=== PATIENT | female | born 1955 | race Caucasian/White ===

== ENCOUNTER 2016-11-08 00:36 | Emergency (ER) | payer MEDICARE, OTHER ==
[~2016-11-08] VITALS: Ht 154.9 cm; Wt 55.0 kg
[2016-11-08 00:41] VITALS: Ht 154.9 cm; Wt 55.0 kg
[2016-11-08] MEDS ORDERED: SOD CHLORIDE 0.9% 1,000 ML IV STA (01:46)
[2016-11-08] MEDS ORDERED: morphine 2 MG INJ IV ONE (02:00)
[2016-11-08 02:27] LABS: ABNORMAL IP MESSAGE 1; EOSINOPHILS # 0.3 10^3/ul (0.0-0.5); EOSINOPHILS % 8.6 % (0.0-7.0); HEMATOCRIT 32.8 % (37.0-47.0); HEMOGLOBIN 10.3 g/dl (12.0-16.0); LYMPHOCYTES # 0.7 10^3/ul (0.8-2.9); MEAN CORPUSCULAR HEMOGLOBIN 33.6 pg (29.0-33.0); MEAN CORPUSCULAR HGB CONC 31.4 g/dl (32.0-37.0); MEAN CORPUSCULAR VOLUME 106.8 fl (82.0-101.0); MEAN PLATELET VOLUME 11.3 fl (7.4-10.4); MONOCYTE # 0.2 10^3/ul (0.3-0.9); MONOCYTES % 6.5 % (0.0-11.0); NEUTROPHIL # 1.7 10^3/ul (1.6-7.5); NEUTROPHILS % 58.9 % (39.0-77.0); PLATELET COUNT 61 10^3/UL (140-415); RED BLOOD COUNT 3.07 10^6/ul (4.20-5.40); RED CELL DISTRIBUTION WIDTH 15.3 % (11.5-14.5); WHITE BLOOD COUNT 2.9 10^3/ul (4.8-10.8)
--- NOTE | 2016-11-08 02:36 | RADRPT ---
PROCEDURE: XR Elbow. CLINICAL INDICATION: Trauma. Pain. TECHNIQUE: Three views of the left elbow are available for review COMPARISON: None available FINDINGS: There is no fracture. Joint relationships are maintained. Bone mineralization is within normal childers its. There is no posterior fat pad sign. Soft tissues unremarkable. IMPRESSION: 1. No fracture or dislocation. RPTAT: [facility]K .Eladio Villanueva MD, Date Time Electronically viewed and signed by .Eladio Villanueva MD, on 11/08/2016 02:35 .K/
--- NOTE | 2016-11-08 02:37 | RADRPT ---
PROCEDURE: XR Left Knee. CLINICAL INDICATION: Left knee pain. Trauma. TECHNIQUE: Three views of the left knee are available for review. COMPARISON: None available FINDINGS: There is mild diffuse soft tissue swelling. There is no fracture. Joint relationships are maintain ed. Patella is unremarkable. Bone mineralization is within normal limits. IMPRESSION: 1. Diffuse soft tissue swelling. 2. No acute fracture or dislocation is seen. RPTAT: HMVK .Eladio Villanueva MD, MD Date Time Electronically viewed and signed by .Eladio Villanueva MD, MD on 11/08/2016 02:36 .K/
--- NOTE | 2016-11-08 02:38 | RADRPT ---
PROCEDURE: XR Knee. CLINICAL INDICATION: Pain. Trauma. TECHNIQUE: Three views of the right knee are available for review. COMPARISON: None available FINDINGS: There is mild diffuse soft tissue swelling. There is no fracture. Joint relationships are maintain ed. Bone mineralization is within normal limits. Vascular calcifications are present. IMPRESSION: 1. Diffuse soft tissue swelling. 2. No acute fracture or dislocation is seen. 3. Vascular calcifications. RPTAT: [facility]VK .Eladio Villanueva MD, MD Date Time Electronically viewed and signed by .Eladio Villanueva MD, on 11/08/2016 02:38 .K/
[2016-11-08 02:43] LABS: CALCIUM 9.5 mg/dl (8.4-10.2); CREATININE 3.94 mg/dl (0.44-1.00); POTASSIUM 4.4 mmol/L (3.5-5.1)
[2016-11-08 02:50] LABS: ADD SCAN DIFF YES
--- NOTE | 2016-11-08 03:04 | RADRPT ---
PROCEDURE: CT brain without contrast. CLINICAL INDICATION: Injury and pain. TECHNIQUE: CT scan of the brain was performed on a multi-detector high-resolution CT scanner. Co ntiguous axial images were obtained from the skull base to the vertex without intravenous contrast. Coronal and sagittal reformatted images were also obtained. Images were reviewed on the PACS works tation. One or more of the following dose reduction techniques were used: - Automated exposure control. - Adjustment of the mA and/or kV according to patient size. - Use of iterative reconstruction technique. Exam CTD/vol = 44.68 mGy. Total exam DLP = 720.23 mGy-cm. COMPARISON: None. FINDINGS: The ventricles and cortical sulci are prominent consistent with mild age related volume loss. There are patchy areas of low attenuation within the periventricular white matter consistent with minimal chronic ischemic changes secondary to small vessel disease. There is no mass effect or midline bebe ft. There is no intracranial hemorrhage or abnormal extra-axial collection. There are atherosclerot ic calcifications within bilateral distal internal carotid arteries. The calvarium is intact. There is no evidence of fracture. Visualized paranasal sinuses and mastoi d air cells are clear. IMPRESSION: No acute intracranial abnormality identified. Mild age related volume loss and minimal chronic ischemic white matter disease. Cerebral atherosclerosis. .Victor Manuel Garcia MD, Date Time Electronically viewed and signed by .Victor Manuel Garcia MD, MD on 11/08/2016 03:04 .T/
--- NOTE | 2016-11-08 03:08 | RADRPT ---
PROCEDURE: CT facial bones without contrast. CLINICAL INDICATION: Injury and pain. TECHNIQUE: CT scan of the facial bones was performed [facility] Contiguous axial images were obtained without intravenous contrast. Coronal and sagittal refor matted images were also obtained. Images were reviewed on the PACS workstation. One or more of the following dose reduction techniques were used: - Automated exposure control. - Adjustment of the mA and/or kV according to patient size. - Use of iterative reconstruction technique. Exam CTD/vol = 29.52 mGy. Total exam DLP = 600.40 mGy-cm. COMPARISON: None. FINDINGS: There are fractures of the nasal bone. Bilateral orbital rims, zygoma and zygomatic arches are inta ct. The pterygoid plates are intact. The mandible and maxilla are within normal limits. Bilateral temporomandibular joints are within normal limits. There is mild mucoperiosteal disease within the left maxillary sinus and right frontal sinus. There are no air-fluid levels. Bilateral orbital globes are symmetric and within normal limits. The extraocular muscles are symmet mignon and of normal caliber. Preseptal spaces are within normal limits. Retrobulbar fat are clear. Bilateral optic nerves and superior ophthalmic veins are within normal limits. IMPRESSION: Nasal bone fractures. Mild paranasal sinus inflammatory disease. .Victor Manuel Garcia MD, MD Date Time Electronically viewed and signed by .Victor Manuel Garcia MD, MD on 11/08/2016 03:08 .T/
[2016-11-08] MEDS ORDERED: OXYMETAZOLINE 0.05% 15 ML NAS SPRAY NASAL ONE (04:00)
[2016-11-08] MEDS ORDERED: KETOROLAC 15 MG INJ IV STA (04:29)
[2016-11-08 05:00] LABS: ANISOCYTOSIS 1+; PLATELET ESTIMATE PLT APPEAR DECREASED
[2016-11-08] MEDS ORDERED: predniSONE 50 MG TAB PO ONE (05:30)
[2016-11-08] MEDS ORDERED: NAPR-685 PO (05:31)
[2016-11-08] MEDS ORDERED: HYDR-906 PO (05:31)
[2016-11-08] MEDS ORDERED: ONDA4TAB11 PO (05:31)
--- NOTE | 2016-11-08 05:37 | ERD ---
ER Documentation Chief Complaint Date/Time DATE: 11/08/16 TIME: 05:36 Chief Complaint PT FELL ASLEEP AND FELL FORWARD, LEFT ELBOW INJURY, NOSE INJURY HPI This 61-year-old female presents for falling asleep while sitting and falling forward. She fell forward and hit her nasal bridge on the ground as well as her knees and her left elbow. Denies any loss of consciousness. States that she felt well earlier today and has had no other issues except for an itchy rash on her lower thighs that she has been taking Benadryl for. She receives dialysis and last received on Tuesday with no complications. She has no chest pain, dizziness, shortness of breath. She has not had fevers and chills lately. ROS All systems reviewed and are negative except as per history of present illness. Medications Home Meds Active Scripts Naproxen* (Naproxen*) 375 Mg Tablet, 375 MG PO BID Y for PAIN, #20 TAB Prov:ANTONIO LOFTON DO 11/08/16 Hydrocodone/Acetaminophen (Tinnie 5-325 Tablet) 1 Each Tablet, 1 EACH PO Q6 for SEVERE PAIN LEVEL 7-10, #16 TAB Prov:ANTONIO LOFTON DO 11/08/16 Ondansetron (Zofran Odt) 4 Mg Tab.rapdis, 4 MG PO Q6 for NAUSEA, #10 Prov:ANTONIO LOFTON DO 11/08/16 Allergies Allergies: Coded Allergies: lidocaine (Unverified Allergy, Unknown, 11/08/16) PMhx/Soc History of Surgery: Yes (CHOLECYSTECTOMY, CATARACTS, ANGIOGRAM X'S 2) Anesthesia Reaction: No Hx Neurological Disorder: No Hx Respiratory Disorders: No Hx Cardiac Disorders: Yes (HTN) Hx Psychiatric Problems: No Hx Miscellaneous Medical Probl: Yes (ESRD, DIALYSIS) Hx Alcohol Use: No Hx Substance Use: No Hx Tobacco Use: No Smoking Status: Never smoker Physical Exam Vitals Vital Signs Date Time Temp Pulse Resp B/P Pulse Ox O2 Delivery O2 Flow Rate FiO2 11/08/16 04:55 97.3 70 17 153/67 95 Room Air 11/08/16 01:40 97.3 75 17 151/67 98 Room Air 11/08/16 00:41 97.3 80 17 173/75 95 Physical Exam Const: [] Mild distress, appears uncomfortable Head: Atraumatic Eyes: Normal Conjunctiva, EOMI, PRL ENT: Nasal bridge with swelling and no lacerations. Tenderness palpation about nose but no other bones of the face are tender. No septal hematoma peer Neck: Full range of motion..~ No meningismus. No midline tenderness. Resp: Clear to auscultation bilaterally Cardio: Regular rate and rhythm, no murmurs Abd: Soft, non tender, non distended. Normal bowel sounds Skin: No petechiae or rashes Back: No midline or flank tenderness Ext: Left elbow edema approximately 3 cm from left upper arm fistula which has a palpable thrill and no apparent damage. Also bilateral knee swelling with some tenderness to palpation however patient is able to move her knees and bend them without assistance. Distal pulses intact all 4 extremities Neur: Awake and alert and oriented 3, no focal deficits, cranial 2 through 12 intact, no cerebellar deficit Psych: Normal Mood and Affect Result Diagram: 11/08/1620911/08/16 021 Results 24 hrs Laboratory Tests Test 11/08/16 02:10 White Blood Count 2.910^3/ul Red Blood Count 3.0710^6/ul Hemoglobin 10.3g/dl Hematocrit 32.8% Mean Corpuscular Volume 106.8fl Mean Corpuscular Hemoglobin 33.6pg Mean Corpuscular Hemoglobin Concent 31.4g/dl Red Cell Distribution Width 15.3% Platelet Count 6110^3/UL Mean Platelet Volume 11.3fl Neutrophils % 58.9% Lymphocytes % 25.0% Monocytes % 6.5% Eosinophils % 8.6% Basophils % 1.0% Nucleated Red Blood Cells % 0.0/100WBC Neutrophils # 1.710^3/ul Lymphocytes # 0.710^3/ul Monocytes # 0.210^3/ul Eosinophils # 0.310^3/ul Basophils # 0.010^3/ul Nucleated Red Blood Cells # 0.010^3/ul Platelet Estimate PLT APPEAR DECREASED Anisocytosis 1+ Macrocytosis 1+ Sodium Level 143mmol/L Potassium Level 4.4mmol/L Chloride Level 94mmol/L Carbon Dioxide Level 31mmol/L Anion Gap 22 Blood Urea Nitrogen 30mg/dl Creatinine 3.94mg/dl Glucose Level 131mg/dl Calcium Level 9.5mg/dl Current Medications Medications (Trade) Dose Ordered Sig/Alana Route PRN Reason Start Time Stop Time Status Last Admin Dose Admin Sodium Chloride (NS) 1,000 ml @ 1,000 mls/hr Q1H STAT IV 11/08/16 01:46 11/08/16 02:45 DC 11/08/16 02:32 Morphine Sulfate (morphine) 2 mg ONCE ONCE IV 11/08/16 02:00 11/08/16 02:01 DC 11/08/16 02:33 Oxymetazoline HCl (Afrin [place]) 2 spray ONCE ONCE NASAL 11/08/16 04:00 11/08/16 04:37 DC 11/08/16 04:53 Ketorolac Tromethamine (Toradol) 15 mg ONCE STAT IV 11/08/16 04:29 11/08/16 04:30 DC 11/08/16 04:36 Prednisone (Prednisone) 50 mg ONCE ONCE PO 11/08/16 05:30 11/08/16 05:31 DC 11/08/16 05:33 Procedures/MDM Accidental fall and fell asleep in a seated position without any obvious other etiology that is concerning. Nasal fractures. Bilateral knee contusion as well as left elbow contusion. Patient was given morphine as well as small dose of Toradol and with relief of pain. She has family at bedside is going to be discharged in their care. She was also given Afrin nasal spray which did help open up her nasal passages. Giving her primary care follow-up in the next 2 days as well as ENT follow-up. She has no apparent metabolic abnormalities and it appears that dialysis went well. No signs of infection of the patient does have leukocytosis and a macrocytic anemia. EKG interpretation: Normal sinus rhythm rate of 71, normal axis, T-wave inversions in lateral leads, no ST elevations or depressions concerning for ischemia, normal intervals. quality assurance monitor body interpretation: Normal sinus rhythm without arrhythmia Maxillofacial CT: Bilateral nasal bone fractures without other fracture or dislocation. No orbital fracture. No foreign bodies CT head interpretation: No acute process. I see no hemorrhage, no mass-effect, no midline shift, no skull fracture. Bilateral knee x-ray interpretation by myself: I see no fracture dislocation. There is soft tissue swelling bilaterally. Left elbow x-ray interpretation: Soft tissue swelling without fracture dislocation. Departure Diagnosis: Primary Impression: Head injury Additional Impressions: Nasal bone fracture Accidental fall Contusion of knee, left Contusion of knee, right Left elbow contusion Condition: Stable Patient Instructions: Facial Fracture, HEAD INJURY, No Wake-Up (Adult) Additional Instructions: Call your primary care doctor TOMORROW for an appointment during the next 1-2 days. Get a referral for an ENT doctor. See the doctor sooner or return here if your condition worsens before your appointment time. ANTONIO LOFTON DO Nov 08, 2016 05:36
[2016-11-08 05:44] VITALS: BP 138/67; PULSE 70; RESP 17; TEMP 97.3
== END 2016-11-08 05:46 | disposition home or self-care (01) ==
LOC: E/R 00:36
DX: S09.90XA Unspecified injury of head, initial encounter (principal); S02.2XXA Fracture of nasal bones, initial encounter for closed fracture; S80.02XA Contusion of left knee, initial encounter; S80.01XA Contusion of right knee, initial encounter; S50.02XA Contusion of left elbow, initial encounter; I12.0 Hypertensive chronic kidney disease with stage 5 chronic kidney disease or end stage renal disease; N18.6 End stage renal disease; W18.39XA Other fall on same level, initial encounter; Y92.9 Unspecified place or not applicable; Z99.2 Dependence on renal dialysis
CPT/HCPCS: 70450; 70486; 73080; 73562; 80048; 85025; 93005; J1885; J2270; J7030; J7512; 36415; 96374; 96375

== ENCOUNTER 2017-08-13 09:05 | Inpatient (IN) | END 2017-09-19 22:15 | DRG 871 ==

== ENCOUNTER 2017-09-26 19:55 | Emergency (ER) | END 2017-09-27 05:58 | disposition home or self-care (01) ==

== ENCOUNTER 2018-03-24 12:04 | Inpatient (IN) | END 2018-03-27 18:35 | disposition home or self-care (01) | DRG 150 ==

== ENCOUNTER 2018-08-29 19:57 | Observation (INO) | payer MEDICARE, OTHER ==
[~2018-08-29] VITALS: Ht 154.9 cm; Wt 44.0 kg
[~2018-08-29 19:57] MED LIST: ACET325T33 PO; AMIN30LI PO; AMLO5TAB4 PO; ASC500 PO; BISA10SU75 PR; CHOL100062 PO; CITA20TA8 PO; CRAN3875 PO; CRAN425C6 PO; DICL100G37 TOP; DOCU-144 PO; EPOE3000 SC; HEPA100D39 IV; HYDR-3980 PO; HYDR-4011 PO; LEVO500T10 PO; LOPE-123 PO; LYR75 PO; MORP15TA92 PO; MULT-105 PO; OMEP20CA16 PO; PRED5TAB PO; SIME80TA60 PO; TYL500 PO
[2018-08-30] MEDS ORDERED: CEFTRIAXONE 1 GM/50 ML (PMX) 50 ML IVPB ONE (01:30)
[2018-08-30] MEDS ORDERED: VANCOMYCIN 1 GM (PMX) 250 ML IVPB STA (01:56)
[2018-08-30] MEDS ORDERED: CEFEPIME 1GM/50 ML (PMX) 50 ML IVPB STA (01:56)
--- NOTE | 2018-08-30 03:13 | ERD ---
ER Documentation Chief Complaint Chief Complaint sore throat, cough, fever, chills x1wk. hx esrd on hd HPI This is a very pleasant 63-year-old female comes in with a cough fever and chills for the past week. Patient has history of end-stage renal disease on dialysis. Cough is mildly productive with yellowish sputum. No nausea no vomiting. No sick contacts. No recent travel. She is Tuesday dialysis patient. She denies any other current complaints. ROS All systems reviewed and are negative except as per history of present illness. Medications Home Meds Active Scripts Levofloxacin* (Levofloxacin*) 500 Mg Tablet, 500 MG PO DAILY, #7 TAB Prov:MAGALYS PAUL 03/27/18 Docusate Sodium* (Colace*) 100 Mg Capsule, 100 MG PO TID, #30 CAP Prov:ANY REVELES MD 03/24/18 Hydrocodone/Acetaminophen (Pillow 5-325 Tablet) 1 Each Tablet, 1 TAB PO Q6H PRN for PAIN, #20 TAB Prov:ANY REVELES MD 03/24/18 Reported Medications Epoetin june* (Epogen*) 3,000 Unit/1 Ml Vial, 6000 UNITS SC Q TUE,CORINNE,SAT, VIAL INJECT AT 5PM 09/26/17 Heparin Sodium,Porcine/Pf (Heparin 1,000 Unit/10 (100/ml)) 1,000 Unit/10 Ml Syringe, 4000 UNIT IV AFTER DIALYSIS 09/26/17 Simethicone* (Mylicon*) 80 Mg Tab, 80 MG PO DAILY PRN for GAS RELIEVF, TAB 09/26/17 Pregabalin* (Lyrica*) 75 Mg Capsule, 75 MG PO BID, CAP 09/26/17 Prednisone* (Prednisone*) 5 Mg Tab, 5 MG PO DAILY, TAB 09/26/17 Omeprazole* (Omeprazole*) 20 Mg Capsule.dr, 20 MG PO QAM, #30 CAP 09/26/17 Loperamide Hcl* (Loperamide Hcl*) 2 Mg Cap, 2 MG PO BID, CAP 09/26/17 Cholecalciferol* (Vitamin D3*) 1,000 Unit Tablet, 1000 UNIT PO DAILY, TAB 09/26/17 Amlodipine Besylate* (Norvasc*) 5 Mg Tablet, 5 MG PO DAILY, TAB HOLD IF SBP<110 & HR<60 09/26/17 Diclofenac Sodium* (Voltaren* Gel) 1% -100 Gm Gel, 2 GM TOP QID, #1 TUB 09/26/17 Citalopram Hydrobromide* (Citalopram Hydrobromide*) 20 Mg Tablet, 20 MG PO DAILY, #30 TAB 09/26/17 Cran/Vitc/Mannose/Inulin/Brom (Uti-Stat Liquid) 3,875 Mg/30 Ml Liquid, 30 ML PO DAILY 09/26/17 Cranberry Extract (Cranberry) 425 Mg Capsule, 425 MG PO DAILY, CAP 09/26/17 Bisacodyl* (Bisacodyl*) 10 Mg Supp, 10 MG W[place] DAILY, SUPP 09/26/17 Docusate Sodium* (Colace*) 100 Mg Capsule, 200 MG PO QHS, #30 CAP 09/26/17 Amino Acids/Protein Hydrolys (PRO-STAT LIQUID) 30 Ml Liquid.pkt, 30 ML PO DAILY SUGAR FREE 09/26/17 Ascorbic Acid (Vitamin C) 500 Mg Tab, 500 MG PO BID, TAB 09/26/17 Multivitamin with Minerals (Multivitamins with Minerals) 1 Each Tablet, 1 EACH PO DAILY, TAB 09/26/17 Morphine Sulfate* (Ms Contin*) 15 Mg Tablet.sa, 15 MG PO Q12, TAB 09/26/17 Acetaminophen* (Tylenol*) 325 Mg Tablet, 650 MG PO Q4H PRN for FOR FEVER 100 & ABOVE, TAB 09/26/17 Hydrocodone/Acetaminophen (Pillow 10-325 Tablet) 1 Each Tablet, 1 EACH PO Q4H for PAIN 7-9/10, TAB 09/26/17 Acetaminophen* (Tylenol*) 500 Mg Tab, 1000 MG PO Q6H PRN for PAIN 7-9/10, TAB 09/26/17 Acetaminophen* (Tylenol*) 325 Mg Tablet, 650 MG PO Q6H PRN for MILD PAIN LEVEL 1-3, TAB 09/26/17 Allergies Allergies: Coded Allergies: lidocaine (Unverified Allergy, Unknown, 09/26/17) PMhx/Soc History of Surgery: Yes (CHOLECYSTECTOMY, ENDOMITRIOSIS, ANGIOGRAM ) Anesthesia Reaction: No Hx Neurological Disorder: No Hx Respiratory Disorders: Yes (PNA, BRONCHITIS) Hx Cardiac Disorders: Yes (HTN) Hx Psychiatric Problems: No Hx Miscellaneous Medical Probl: Yes (ESRD on HD, thrombocytopenia, anemia, and lupus ) Hx Alcohol Use: No Hx Substance Use: No Hx Tobacco Use: Yes Smoking Status: Former smoker Physical Exam Vitals Vital Signs Date Temp Pulse Resp B/P (MAP) Pulse Ox O2 O2 Flow FiO2 Time Delivery Rate 08/30/18 98.6 68 10 149/61 100 Room Air 00:55 (90) 08/29/18 75 16 142/65 97 Room Air 23:22 (90) 08/29/18 97.9 77 18 190/76 96 20:00 (114) Physical Exam Const: No acute distress Head: Atraumatic Eyes: Normal Conjunctiva ENT: Normal External Ears, Nose and Mouth. Neck: Full range of motion. No meningismus. Resp: Clear to auscultation bilaterally Cardio: Regular rate and rhythm, no murmurs Abd: Soft, non tender, non distended. Normal bowel sounds Skin: No petechiae or rashes Back: No midline or flank tenderness Ext: No cyanosis, or edema Neur: Awake and alert Psych: Normal Mood and Affect Result Diagram: 08/29/18232908/29/182329 Results 24 hrs Laboratory Tests Test 08/29/18 23:30 08/29/18 23:33 08/30/18 00:55 08/30/18 03:04 White Blood Count 6.1 10^3/ul Red Blood Count 2.99 10^6/ul Hemoglobin 10.1 g/dl Hematocrit 30.6 % Mean Corpuscular 102.3 fl Volume Mean Corpuscular 33.8 pg Hemoglobin Mean Corpuscular 33.0 g/dl Hemoglobin Concen t Red Cell 15.1 % Distribution Width Platelet Count 163 10^3/UL Mean Platelet 9.4 fl Volume Immature 0.500 % Granulocytes % Neutrophils % 75.5 % Lymphocytes % 14.8 % Monocytes % 5.4 % Eosinophils % 3.6 % Basophils % 0.2 % Nucleated Red 0.0 /100WBC Blood Cells % Immature 0.030 10^3/ul Granulocytes # Neutrophils # 4.6 10^3/ul Lymphocytes # 0.9 10^3/ul Monocytes # 0.3 10^3/ul Eosinophils # 0.2 10^3/ul Basophils # 0.0 10^3/ul Nucleated Red 0.0 10^3/ul Blood Cells # Prothrombin Time 14.4 Sec Prothrombin Time 1.1 Ratio INR International 1.11 Normalized Ratio Activated 41.2 Sec Partial Thrombopl ast Time Sodium Level 135 mmol/L Potassium Level 4.5 mmol/L Chloride Level 91 mmol/L Carbon Dioxide 31 mmol/L Level Anion Gap 13 Blood Urea 24 mg/dl Nitrogen Creatinine 3.99 mg/dl Est Glomerular 11 mL/min Filtrat Rate mL/min Glucose Level 88 mg/dl Calcium Level 8.0 mg/dl Total Bilirubin 0.0 mg/dl Direct Bilirubin 0.00 mg/dl Indirect 0.0 mg/dl Bilirubin Aspartate Amino 22 IU/L Transf (AST/SGOT) Alanine 11 IU/L Aminotransferase (ALT/SGPT) Alkaline 179 IU/L Phosphatase Troponin I 0.020 ng/ml Total Protein 8.0 g/dl Albumin 4.5 g/dl Globulin 3.50 g/dl Albumin/Globulin 1.28 Ratio POC Venous 0.8 mmol/L 0.8 mmol/L Lactate Urine Color YELLOW Urine Clarity CLOUDY Urine pH 8.0 Urine Specific 1.013 [place] Urine Ketones NEGATIVE mg/dL Urine Nitrite NEGATIVE mg/dL Urine Bilirubin NEGATIVE mg/dL Urine NEGATIVE mg/dL Urobilinogen Urine Leukocyte 2+ Alfredo/ul Esterase Urine Microscopic 6 /HPF RBC Urine Microscopic 168 /HPF WBC Urine Squamous MODERATE /HPF Epithelial Cells Urine Bacteria FEW /HPF Urine Hemoglobin 1+ mg/dL Urine Glucose 1+ mg/dL Urine Total 3+ mg/dl Protein Current Medications Medications Dose Sig/Alana Start Time Status Last (Trade) Ordered Route PRN Stop Time Admin Dose Reason Admin Ceftriaxone 50 ml @ ONCE ONCE 08/30/18 DC 08/30/18 Sodium 100 mls/hr IVPB 01:30 01:38 08/30/18 01:59 Cefepime HCl 50 ml @ ONCE STAT 08/30/18 DC 08/30/18 100 mls/hr IVPB 01:56 03:00 08/30/18 02:25 Vancomycin 250 ml @ ONCE STAT 08/30/18 HCl 125 mls/hr IVPB 01:56 08/30/18 03:55 Procedures/MDM EKG: Rate/Rhythm: [Normal Sinus Rhythm] QRS, ST, T-waves: [No changes consistent w/ acute ischemia] Impression: [No evidence of ischemia or arrhythmia] Chest X-ray 1V Interpreted by me: Soft Tissue: No acute abnormalities Bones: No acute abnormalities Mediastinum/Cardiac Silhouette/Lungs: Bilateral lower lobe infiltrates Medical decision making: This is a 63-year-old female as well as to be bilateral lower lobe pneumonia along with a urinary tract infection given her multiple source of infection and the fact that she is a dialysis patient, patient was started on H CAP pneumonia protocol. No evidence of sepsis with a normal lactic acid normal vital signs. Patient will be admitted to hospitalist for further evaluation and management. Departure Diagnosis: Primary Impression: Bilateral pneumonia Pneumonia type: due to unspecified organism Lung location: lower lobe of lung Qualified Codes: J18.1 - Lobar pneumonia, unspecified organism Condition: Serious EKTA PIERCE Aug 30, 2018 03:13
[2018-08-30] MEDS ORDERED: LYR75 PO (04:06)
[2018-08-30 04:11] VITALS: BP 165/68; PULSE 66; RESP 16
[2018-08-30 04:34] VITALS: Ht 154.9 cm; Wt 44.0 kg
[2018-08-30] MEDS ORDERED: ONDANSETRON 4 MG INJ IV PRN (05:30)
[2018-08-30] MEDS ORDERED: NACL 0.9% 3 ML SYG IV SCH (05:30)
[2018-08-30] MEDS ORDERED: ALBUTEROL/IPRATROPIUM (NEB) 3 ML AMP HHN PRN (05:30)
[2018-08-30] MEDS ORDERED: HYDROCODONE/APAP (5/325) TAB PO PRN (05:30)
[2018-08-30] MEDS ORDERED: ACETAMINOPHEN 325 MG TAB PO PRN (05:30)
[2018-08-30] MEDS: LISINOPRIL 10 MG TAB PO SCH (05:51)
[2018-08-30 08:00] VITALS: BP 140/72; PULSE 67; RESP 20
--- NOTE | 2018-08-30 08:03 | HP ---
Date/Time of Note Date/Time of Note DATE: 08/30/18 TIME: 07:57 Assessment/Plan VTE Prophylaxis Risk score (from Ns)>0 risk: 3 SCD applied (from Ns): Yes Pharmacological prophylaxis: heparin Lines/Catheters IV Catheter Type (from Nrs): Saline Lock Assessment/Plan Assessment/Plan 1. Sore throat and productive cough -Chest x-ray was possible bilateral pneumonia -Respiratory culture, throat swab -IV antibiotic 2. UTI: IV antibiotic, follow-up urine culture results 3. ESRD on HD (Tue, Thr, Sat), patient with a history of lupus: -Nephrology for dialysis 4. Hypertensive urgency: BP better controlled. Continue home meds, adjust as needed 5. Normocytic anemia: Likely anemia of chronic disease/renal failure Result Diagram: 08/29/18232908/29/180 Results 24hrs Laboratory Tests Test 08/29/18 23:30 08/29/18 23:33 08/30/18 00:55 08/30/18 03:04 White Blood Count 6.1 Red Blood Count 2.99 L Hemoglobin 10.1 #L Hematocrit 30.6 L Mean Corpuscular 102.3 H Volume Mean Corpuscular 33.8 H Hemoglobin Mean Corpuscular 33.0 Hemoglobin Concent Red Cell 15.1 H Distribution Width Platelet Count 163 # Mean Platelet Volume 9.4 Immature 0.500 H Granulocytes % Neutrophils % 75.5 Lymphocytes % 14.8 L Monocytes % 5.4 Eosinophils % 3.6 Basophils % 0.2 Nucleated Red Blood 0.0 Cells % Immature 0.030 Granulocytes # Neutrophils # 4.6 Lymphocytes # 0.9 Monocytes # 0.3 Eosinophils # 0.2 Basophils # 0.0 Nucleated Red Blood 0.0 Cells # Prothrombin Time 14.4 Prothrombin Time 1.1 Ratio INR International 1.11 Normalized Ratio Activated 41.2 H Partial Thromboplast Time Sodium Level 135 Potassium Level 4.5 Chloride Level 91 L Carbon Dioxide Level 31 Anion Gap 13 Blood Urea Nitrogen 24 H Creatinine 3.99 H Est Glomerular 11 L Filtrat Rate mL/min Glucose Level 88 Calcium Level 8.0 L Total Bilirubin 0.0 L Direct Bilirubin 0.00 Indirect Bilirubin 0.0 Aspartate Amino 22 Transf (AST/SGOT) Alanine 11 L Aminotransferase (AL T/SGPT) Alkaline Phosphatase 179 H Troponin I 0.020 Total Protein 8.0 Albumin 4.5 Globulin 3.50 H Albumin/Globulin 1.28 Ratio POC Venous Lactate 0.8 0.8 Urine Color YELLOW Urine Clarity CLOUDY A Urine pH 8.0 Urine Specific 1.013 [place] Urine Ketones NEGATIVE Urine Nitrite NEGATIVE Urine Bilirubin NEGATIVE Urine Urobilinogen NEGATIVE Urine Leukocyte 2+ H Esterase Urine Microscopic 6 H RBC Urine Microscopic 168 H WBC Urine Squamous MODERATE Epithelial Cells Urine Bacteria FEW A Urine Hemoglobin 1+ H Urine Glucose 1+ H Urine Total Protein 3+ H Test 08/30/18 05:29 Lactic Acid Level 1.0 HPI/ROS Admit Date/Time Admit Date/Time Aug 30, 2018 at 02:28 Hx of Present Illness This is a 63-year-old female with a history of hypertension, lupus, ESRD on HD who presented to ER complaining of sore throat x 1 week. She also reported a productive cough. When I asked what color her sputum is, she said "it tastes like it is green". She said she has poor vision and as a result I guess she relies on her test bud to differentiate colors. When she presented to the ER, BP was 190/76. No fever, WBC WNL. UA consistent with UTI. Chest x-ray shows the followin. Decreased right lung base air space disease and pleural effusion over interval since 03/26/2018. 2. Improved aeration at the left lung base, with decreased air space disease. 3. Small left pleural effusion is increased over interval. 4. In setting of sepsis findings are concerning for bilateral lung base pneumonias, right greater than left. PMH/Family/Social Past Medical History Medical History: other (See HPI) Medications Current Medications IV Flush (NS 3 ml) 3 ml PER PROTOCOL IV ; Start 08/30/18 at 05:30 Ondansetron HCl (Zofran Inj) 4 mg Q6H PRN IV NAUSEA/VOMITING; Start 08/30/18 at 05:30 Acetaminophen (Tylenol Tab) 650 mg Q6H PRN PO .PAIN 1-3 OR TEMP; Start 08/30/18 at 05:30 Acetaminophen/ Hydrocodone Bitart ([place] (5/325)) 1 tab Q6H PRN PO .PAIN 4-6; Start 08/30/18 at 05:30 Acetaminophen/ Hydrocodone Bitart ([place] (5/325)) 2 tab Q6H PRN PO .PAIN 7-10; Start 08/30/18 at 05:30 Heparin Sodium (Porcine) (Heparin (5000 Units/1ml)) 5,000 unit Q12 SC ; Start 08/30/18 at 09:00 Albuterol/ Ipratropium (Duoneb) 3 ml Q2H RESP THERAPY PRN HHN SHORTNESS OF BREATH; Start 08/30/18 at 05:30 Pregabalin (Lyrica) 75 mg BID PO ; Start 08/30/18 at 09:00 Lisinopril (Zestril) 10 mg DAILY PO Last administered on 08/30/18at 05:51; Admin Dose 10 MG; Start 08/30/18 at 05:30 Coded Allergies: lidocaine (Unverified Allergy, Unknown, 08/30/18) Past Surgical History Past Surgical Hx: other (See HPI) Family History Significant Family History: no pertinent family hx Social History Alcohol Use: none Smoking Status: Former smoker Drug Use: none Exam/Review of Systems Vital Signs Vitals Vital Signs Date Temp Pulse Resp B/P (MAP) Pulse Ox O2 O2 Flow FiO2 Time Delivery Rate 08/30/18 98.0 66 16 165/68 96 04:11 (100) 08/30/18 Room Air 03:37 Intake and Output 08/29/18 08/29/18 08/30/18 1515:00 23:00 07:00 IntakeIntake Total 350 ml BalanceBalance 350 ml Exam Constitutional: alert, oriented, well developed Head: normocephalic, atraumatic Eyes: EOMI, PERRL Respiratory: clear to auscultation, normal air movement Cardiovascular: regular rate and rhythm Gastrointestinal: soft Extremities: normal pulses EKTA DENNIS MD Aug 30, 2018 08:03
[2018-08-30] MEDS: HEPARIN 5,000 UNIT/1 ML VIAL SC SCH ×2 (09:00→21:00)
[2018-08-30] MEDS: PREGABALIN 75 MG CAP PO SCH ×2 (09:38→21:30)
[2018-08-30] MEDS: AZITHROMYCIN 500MG/NS (PMX) 250 ML IVPB SCH (09:38)
[2018-08-30] MEDS: CEPASTAT LOZENGE MT PRN ×2 (12:23→16:37)
[2018-08-30] MEDS: CEFTRIAXONE 1 GM/50 ML (PMX) 50 ML IVPB SCH (12:57)
[2018-08-30] MEDS: LORAZEPAM 2 MG INJ IV PRN (13:10)
[2018-08-30 14:00] VITALS: BP 152/67; PULSE 67; RESP 18
--- NOTE | 2018-08-30 17:14 | PN ---
Date/Time of Note Date/Time of Note DATE: 08/30/18 TIME: 17:10 Assessment/Plan VTE Prophylaxis Risk score (from Ns)>0 risk: 3 [place] [facility] [place] SCD contraindicated: other Pharmacological prophylaxis: heparin Lines/Catheters IV Catheter Type (from [facility]): Saline Lock Urinary Cath still in place: No Assessment/Plan Hospital Course S: Patient had no acute events overnight, coughing symptoms are relieved with Cepastat. No fevers. O: Vs- see below PE: Constitutional: alert, oriented, well developed Head: normocephalic, atraumatic Eyes: EOMI, PERRL Respiratory: clear to auscultation, normal air movement Cardiovascular: regular rate and rhythm Gastrointestinal: soft Extremities: normal pulses Assessment/Plan: 63-year-old female who presents with: 1. Sore throat and productive cough-Chest x-ray showing signs of likely bilateral pneumonia -Follow-up results of respiratory culture, throat swab -Continue IV antibiotic we will also give patient breathing treatment -Cepastat as needed for cough 2. UTI: UA positive for this -Continue for now IV antibiotic, follow-up urine culture results 3. ESRD on HD (Tue, Thr, Sat), patient with a history of lupus: -We have consulted nephrology for dialysis -likely next session will be tomorrow 4. Hypertensive urgency: Resolved now, BP better controlled. - Continue home meds, adjust as needed 5. Normocytic anemia: Likely anemia of chronic disease/renal failure -Monitor for now Dispo: Likely home in 24 hours if patient's breathing symptoms improve, patient remains afebrile, and patient receives her regularly scheduled dialysis session. Result Diagram: 08/29/180 08/29/18 2330 Results 24hrs Laboratory Tests Test 08/29/18 23:30 08/29/18 23:33 08/30/18 00:55 08/30/18 03:04 White Blood Count 6.1 Red Blood Count 2.99 L Hemoglobin 10.1 #L Hematocrit 30.6 L Mean Corpuscular 102.3 H Volume Mean Corpuscular 33.8 H Hemoglobin Mean Corpuscular 33.0 Hemoglobin Concent Red Cell 15.1 H Distribution Width Platelet Count 163 # Mean Platelet Volume 9.4 Immature 0.500 H Granulocytes % Neutrophils % 75.5 Lymphocytes % 14.8 L Monocytes % 5.4 Eosinophils % 3.6 Basophils % 0.2 Nucleated Red Blood 0.0 Cells % Immature 0.030 Granulocytes # Neutrophils # 4.6 Lymphocytes # 0.9 Monocytes # 0.3 Eosinophils # 0.2 Basophils # 0.0 Nucleated Red Blood 0.0 Cells # Prothrombin Time 14.4 Prothrombin Time 1.1 Ratio INR International 1.11 Normalized Ratio Activated 41.2 H Partial Thromboplast Time Sodium Level 135 Potassium Level 4.5 Chloride Level 91 L Carbon Dioxide Level 31 Anion Gap 13 Blood Urea Nitrogen 24 H Creatinine 3.99 H Est Glomerular 11 L Filtrat Rate mL/min Glucose Level 88 Calcium Level 8.0 L Total Bilirubin 0.0 L Direct Bilirubin 0.00 Indirect Bilirubin 0.0 Aspartate Amino 22 Transf (AST/SGOT) Alanine 11 L Aminotransferase (AL T/SGPT) Alkaline Phosphatase 179 H Troponin I 0.020 Total Protein 8.0 Albumin 4.5 Globulin 3.50 H Albumin/Globulin 1.28 Ratio POC Venous Lactate 0.8 0.8 Urine Color YELLOW Urine Clarity CLOUDY A Urine pH 8.0 Urine Specific 1.013 [place] Urine Ketones NEGATIVE Urine Nitrite NEGATIVE Urine Bilirubin NEGATIVE Urine Urobilinogen NEGATIVE Urine Leukocyte 2+ H Esterase Urine Microscopic 6 H RBC Urine Microscopic 168 H WBC Urine Squamous MODERATE Epithelial Cells Urine Bacteria FEW A Urine Hemoglobin 1+ H Urine Glucose 1+ H Urine Total Protein 3+ H Test 08/30/18 05:29 Lactic Acid Level 1.0 Exam/Review of Systems Exam Vitals Vital Signs Date Temp Pulse Resp B/P (MAP) Pulse Ox O2 O2 Flow FiO2 Time Delivery Rate 08/30/18 98.6 67 18 152/67 96 14:00 (95) 08/30/18 Room Air 03:37 Intake and Output 08/29/18 08/29/18 08/30/18 1515:00 23:00 07:00 IntakeIntake Total 350 ml BalanceBalance 350 ml Results Results 24hrs Laboratory Tests Test 08/29/18 23:30 08/29/18 23:33 08/30/18 00:55 08/30/18 03:04 White Blood Count 6.1 Red Blood Count 2.99 L Hemoglobin 10.1 #L Hematocrit 30.6 L Mean Corpuscular 102.3 H Volume Mean Corpuscular 33.8 H Hemoglobin Mean Corpuscular 33.0 Hemoglobin Concent Red Cell 15.1 H Distribution Width Platelet Count 163 # Mean Platelet Volume 9.4 Immature 0.500 H Granulocytes % Neutrophils % 75.5 Lymphocytes % 14.8 L Monocytes % 5.4 Eosinophils % 3.6 Basophils % 0.2 Nucleated Red Blood 0.0 Cells % Immature 0.030 Granulocytes # Neutrophils # 4.6 Lymphocytes # 0.9 Monocytes # 0.3 Eosinophils # 0.2 Basophils # 0.0 Nucleated Red Blood 0.0 Cells # Prothrombin Time 14.4 Prothrombin Time 1.1 Ratio INR International 1.11 Normalized Ratio Activated 41.2 H Partial Thromboplast Time Sodium Level 135 Potassium Level 4.5 Chloride Level 91 L Carbon Dioxide Level 31 Anion Gap 13 Blood Urea Nitrogen 24 H Creatinine 3.99 H Est Glomerular 11 L Filtrat Rate mL/min Glucose Level 88 Calcium Level 8.0 L Total Bilirubin 0.0 L Direct Bilirubin 0.00 Indirect Bilirubin 0.0 Aspartate Amino 22 Transf (AST/SGOT) Alanine 11 L Aminotransferase (AL T/SGPT) Alkaline Phosphatase 179 H Troponin I 0.020 Total Protein 8.0 Albumin 4.5 Globulin 3.50 H Albumin/Globulin 1.28 Ratio POC Venous Lactate 0.8 0.8 Urine Color YELLOW Urine Clarity CLOUDY A Urine pH 8.0 Urine Specific 1.013 [place] Urine Ketones NEGATIVE Urine Nitrite NEGATIVE Urine Bilirubin NEGATIVE Urine Urobilinogen NEGATIVE Urine Leukocyte 2+ H Esterase Urine Microscopic 6 H RBC Urine Microscopic 168 H WBC Urine Squamous MODERATE Epithelial Cells Urine Bacteria FEW A Urine Hemoglobin 1+ H Urine Glucose 1+ H Urine Total Protein 3+ H Test 08/30/18 05:29 Lactic Acid Level 1.0 Medications Medication Current Medications IV Flush (NS 3 ml) 3 ml PER PROTOCOL IV ; Start 08/30/18 at 05:30 Ondansetron HCl (Zofran Inj) 4 mg Q6H PRN IV NAUSEA/VOMITING; Start 08/30/18 at 05:30 Acetaminophen (Tylenol Tab) 650 mg Q6H PRN PO .PAIN 1-3 OR TEMP; Start 08/30/18 at 05:30 Acetaminophen/ Hydrocodone Bitart ([place] (5/325)) 1 tab Q6H PRN PO .PAIN 4-6; Start 08/30/18 at 05:30 Acetaminophen/ Hydrocodone Bitart ([place] (5/325)) 2 tab Q6H PRN PO .PAIN 7-10; Start 08/30/18 at 05:30 Heparin Sodium (Porcine) (Heparin (5000 Units/1ml)) 5,000 unit Q12 SC ; Start 08/30/18 at 09:00 Albuterol/ Ipratropium (Duoneb) 3 ml Q2H RESP THERAPY PRN HHN SHORTNESS OF BREATH; Start 08/30/18 at 05:30 Pregabalin (Lyrica) 75 mg BID PO Last administered on 08/30/18 09:38; Admin Dose 75 MG; Start 08/30/18 at 09:00 Lisinopril (Zestril) 10 mg DAILY PO Last administered on 08/30/18 05:51; Admin Dose 10 MG; Start 08/30/18 at 05:30 Ceftriaxone Sodium 50 ml @ 100 mls/hr Q12H IVPB Last administered on 08/30/18 12:57; Admin Dose 100 MLS/HR; Start 08/30/18 at 13:30 Azithromycin 250 ml @ 250 mls/hr Q24H IVPB Last administered on 08/30/18 09:38; Admin Dose 250 MLS/HR; Start 08/30/18 at 08:30 Phenol (Cepastat Lozenge) 1 lozenge Q1H PRN [place] sore throat and cough Last administered on 08/30/18 16:37; Admin Dose 1 LOZENGE; Start 08/30/18 at 12:00 Lorazepam (Ativan) 0.5 mg Q12H PRN IV ANXIETY Last administered on 08/30/18 13:10; Admin Dose 0.5 MG; Start 08/30/18 at 12:00 JAYCEE LUND Aug 30, 2018 17:14
[2018-08-30 20:19] VITALS: BP 146/69; PULSE 70; RESP 18
--- NOTE | 2018-08-30 22:45 | CONS ---
DATE OF ADMISSION: 08/30/2018 DATE OF CONSULTATION: 08/30/2018 TYPE OF CONSULTATION: Nephrology. REASON FOR CONSULTATION: End-stage renal disease. PHYSICIAN REQUESTING CONSULT: Dr. Lund. HISTORY OF PRESENT ILLNESS: This is a 63-year-old female with a past medical history of end-stage re nal disease on dialysis Tuesday, , Tuesday, last hemodialysis was Tuesday. The patient has access AV fistula at left upper extremity. The patient also has history of hypertension and lupus wh o presents to [facility] with a cough. The patient states that she has had green p hlegm. The patient also describes difficulty with vision. The patient upon arrival to the emergency room was noted to be hypertensive with a blood pressure of 190/76. The patient had normal WBC. The patient had urinalysis that showed evidence of pyuria. Chest x-ray showed decreased right lung airs pace disease and pleural effusion. The patient was started on antibiotics and admitted to med/surg f or evaluation and treatment. In terms of patient's renal history, the patient has underlying end-stage renal disease. Her primary staff nurse icu resource team is ____ of [place]. The patient dialyzes normally 3 hours with approximately 1 liter of ultrafiltration. PAST MEDICAL HISTORY: As stated above, history of hypertension, history of end-stage renal disease, history of anemia and history of mineral bone disorder. PAST SURGICAL HISTORY: Status post AV fistula. FAMILY HISTORY: No family history of kidney disease. SOCIAL HISTORY: No alcohol or drug use. MEDICATIONS: The patient medications have been reviewed. REVIEW OF SYSTEMS: A 14-point review of systems was conducted. Pertinent positives stated in HPI, o therwise negative. PHYSICAL EXAMINATION: VITAL SIGNS: Blood pressure is 152/67, respiration 18, pulse 67 and temperature 98.6. HEENT: Head is normocephalic. NECK: Supple. HEART: Regular rate. LUNGS: Show diminished breath sounds at the base. ABDOMEN: Soft, nontender to palpation without rebound or guarding. EXTREMITIES: Negative for clubbing, cyanosis, no edema. DERMATOLOGIC: No rashes. MUSCULOSKELETAL: The patient has noted left upper extremity AV fistula with palpable thrill and brui t. NEUROLOGIC: No focal deficits. The patient's medications have been reviewed. LABORATORY DATA: Has been reviewed. IMAGING STUDIES: Have been reviewed. ASSESSMENT AND PLAN: This is a 63-year-old female who presents with: 1. End-stage renal disease. The patient is on dialysis, Tuesday, , and Tuesday with an acc ess AV fistula. ____ hemodialysis tomorrow. We will dialyze for 3 hours, 2k bath, calcium 2.5, ultr afiltrate approximately 1 liter. 2. Anemia. Monitor hemoglobin and hematocrit levels. We will give Epogen as needed. 3. Mineral bone disorder, monitor calcium and phosphorus level. 4. Hypertension. Continue current blood pressure regimen. Continue ultrafiltration with hemodialys is. 5. Urinary tract infection. Continue current antibiotic therapy. Thank you, Dr. Lund, for this interesting consult. It will be a pleasure to follow patient with you throughout the hospital course. Dictated By: BRIA VILLARREAL DO NR/NTS Conf#: [id number] DID#: [id number] CC: EKTA DENNIS MD; JAYCEE LUND;*EndCC*
[2018-08-31] VITALS (17 sets, daily range): BP systolic 114–164; BP diastolic 48–76; PULSE 60–71; RESP 17–20
[2018-08-31] MEDS: CEFTRIAXONE 1 GM/50 ML (PMX) 50 ML IVPB SCH ×2 (01:53→16:07)
[2018-08-31] MEDS: CEPASTAT LOZENGE MT PRN ×4 (02:29→21:42)
[2018-08-31] MEDS: HEPARIN 5,000 UNIT/1 ML VIAL SC SCH ×2 (09:00→21:00)
[2018-08-31] MEDS: AZITHROMYCIN 500MG/NS (PMX) 250 ML IVPB SCH (09:09)
[2018-08-31] MEDS: PREGABALIN 75 MG CAP PO SCH ×2 (09:09→20:28)
[2018-08-31] MEDS: LISINOPRIL 10 MG TAB PO SCH (09:09)
--- NOTE | 2018-08-31 09:34 | PN ---
DATE: 08/31/2018 SUBJECTIVE: The patient is stable, no events overnight. OBJECTIVE: VITAL SIGNS: Blood pressure is 164/76, pulse 71, respirations 17, temperature 98.5. HEENT: Head is normocephalic. NECK: Supple. HEART: Regular rate. LUNGS: Show diminished breath sounds at the base. ABDOMEN: Soft, nontender to palpation without rebound or guarding. EXTREMITIES: Negative for clubbing, cyanosis, no edema. DERMATOLOGIC: No rashes. MUSCULOSKELETAL: No joint effusion. NEUROLOGIC: No change in exam. MEDICATIONS: The patient's medications have been reviewed. LABORATORY DATA: Has been reviewed. ASSESSMENT AND PLAN: 1. End-stage renal disease. The patient will have dialysis today for 3 hours 3k bath, calcium 2.5. 2. Hypernatremia. The patient will be dialyzed on 140 sodium bath. 3. Anemia. Monitor hemoglobin and hematocrit levels. Will give Epogen as needed. 4. Mineral bone disorder, monitor calcium and phosphorus levels. 5. Hypertension. Continue current blood pressure regimen. Continue ultrafiltration with dialysis. 6. Urinary tract infection. Continue current antibiotic regimen. Dictated By: BRIA VILLARREAL DO NR/NTS Conf#: [id number] DID#: [id number] CC: EKTA DENNIS MD; JAYCEE LUND;*EndFANY*
[2018-08-31] MEDS: HYDROCODONE/APAP (5/325) TAB PO PRN ×2 (10:37→20:29)
--- NOTE | 2018-08-31 13:04 | PDOCDIS ---
Discharge Instructions CONDITION [id number] Patient Condition: [id number] Stable HOME CARE INSTRUCTIONS: [id number] Diet Instructions: [id number] Low Fat /Cholesterol ACTIVITY: [id number] Activity Restrictions: [id number] Slowly Increase Activity Rest between Activity Avoid heavy lifting FOLLOW UP/APPOINTMENTS Follow-up Plan Please take your medications as prescribed, see your doctor in the clinic in the next 1 week. JAYCEE LUND Aug 31, 2018 13:04
[2018-08-31] MEDS ORDERED: LEVO750T8 PO (13:05)
[2018-08-31] MEDS ORDERED: BENZ1LOZ4 MT (13:05)
--- NOTE | 2018-08-31 13:10 | DS ---
Date/Time of Note Date/Time of Note DATE: 08/31/18 TIME: 13:06 Discharge Summary Admission/Discharge Info Admit Date/Time Aug 30, 2018 at 02:28 Discharge Date/Time Discharge Diagnosis 1. Sore throat and productive cough-Chest x-ray showing signs of likely bila teral upper restaurant infection, improving 2. UTI: UA positive for this-responding to antiviral 3. ESRD on HD (Tue, Thr, Sat) 4. lupus 5. Hypertensive urgency: Resolved now, BP better controlled. 6. Normocytic anemia: Likely anemia of chronic disease/renal failure Patient Condition: Stable Hx of Present Illness 63-year-old female with a history of hypertension, lupus, ESRD on HD who presented to ER complaining of sore throat x 1 week. She also reported a productive cough. When I asked what color her sputum is, she said "it tastes like it is green". She said she has poor vision and as a result I guess she relies on her test bud to differentiate colors. When she presented to the ER, BP was 190/76. No fever, WBC WNL. UA consistent with UTI. Chest x-ray shows the followin. Decreased right lung base air space disease and pleural effusion over interval since 03/26/2018. 2. Improved aeration at the left lung base, with decreased air space disease. 3. Small left pleural effusion is increased over interval. 4. In setting of sepsis findings are concerning for bilateral lung base pneumonias, right greater than left. Hospital Course Patient was admitted and started on antibiotic therapy. Seen by renal team during this hospital stay. Patient continued dialysis as recommended by the renal doctor. Patient tolerated this well. She was also seen by physical therapy team and ambulated well with front wheel walker and also uses wheelchair at baseline. Her white blood cell count was stable, and urine culture did show mixed growth organisms, but again she responded well to antibiotics. Her upper respiratory infection also improve with Cepastat lozenges and broad-spectrum antibiotics. She was back to baseline status on the day of discharge has vital signs are stable, labs are stable, no fevers, tolerating diet. She will be discharged home later today in improved condition and continue dialysis as regularly scheduled as an outpatient. She will also get 7-day course of antibiotics to treat both the upper respiratory infection and a urine infection. See below for full list of discharge medications. If there are any further growths from her culture results after patient is discharged we will follow-up those results and call patient back if she needs different antibiotics as necessary. Home Meds Active Scripts Levofloxacin* (Levofloxacin*) 750 Mg Tablet, 750 MG PO DAILY for 7 Days, #7 TAB Prov:JAYCEE LUND S. 08/31/18 Benzocaine/Menthol (SORE THROAT LOZENGE) 1 Each Lozenge, 1 LOZENGE MT Q1H PRN for sore throat and cough , #14 LOZENGE Prov:ROSENDOJAYCEE S. 08/31/18 Reported Medications Pregabalin* (Lyrica*) 75 Mg Capsule, 75 MG PO BID, CAP 08/30/18 Hydrocodone/Acetaminophen ([place] 10-325 Tablet) 1 Each Tablet, 1 EACH PO Q4H for PAIN 7-01/16, TAB 09/26/17 Discontinued Reported Medications Epoetin june* (Epogen*) 3,000 Unit/1 Ml Vial, 6000 UNITS SC Q TUE,CORINNE,SAT, VIAL INJECT AT 5PM 09/26/17 Heparin Sodium,Porcine/Pf (Heparin 1,000 Unit/10 (100/ml)) 1,000 Unit/10 Ml Syringe, 4000 UNIT IV AFTER DIALYSIS 09/26/17 Simethicone* (Mylicon*) 80 Mg Tab, 80 MG PO DAILY PRN for GAS RELIEVF, TAB 09/26/17 Pregabalin* (Lyrica*) 75 Mg Capsule, 75 MG PO BID, CAP 09/26/17 Prednisone* (Prednisone*) 5 Mg Tab, 5 MG PO DAILY, TAB 09/26/17 Omeprazole* (Omeprazole*) 20 Mg Capsule.dr, 20 MG PO QAM, #30 CAP 09/26/17 Loperamide Hcl* (Loperamide Hcl*) 2 Mg Cap, 2 MG PO BID, CAP 09/26/17 Cholecalciferol* (Vitamin D3*) 1,000 Unit Tablet, 1000 UNIT PO DAILY, TAB 09/26/17 Amlodipine Besylate* (Norvasc*) 5 Mg Tablet, 5 MG PO DAILY, TAB HOLD IF SBP<110 & HR<60 09/26/17 Diclofenac Sodium* (Voltaren* Gel) 1% -100 Gm Gel, 2 GM TOP QID, #1 TUB 09/26/17 Citalopram Hydrobromide* (Citalopram Hydrobromide*) 20 Mg Tablet, 20 MG PO DAILY, #30 TAB 09/26/17 Cran/Vitc/Mannose/Inulin/Brom (Uti-Stat Liquid) 3,875 Mg/30 Ml Liquid, 30 ML PO DAILY 09/26/17 Cranberry Extract (Cranberry) 425 Mg Capsule, 425 MG PO DAILY, CAP 09/26/17 Bisacodyl* (Bisacodyl*) 10 Mg Supp, 10 MG TX DAILY, SUPP 09/26/17 Docusate Sodium* (Colace*) 100 Mg Capsule, 200 MG PO QHS, #30 CAP 09/26/17 Amino Acids/Protein Hydrolys (PRO-STAT LIQUID) 30 Ml Liquid.pkt, 30 ML PO DAILY SUGAR FREE 09/26/17 Ascorbic Acid (Vitamin C) 500 Mg Tab, 500 MG PO BID, TAB 09/26/17 Multivitamin with Minerals (Multivitamins with Minerals) 1 Each Tablet, 1 EACH PO DAILY, TAB 09/26/17 Morphine Sulfate* (Ms Contin*) 15 Mg Tablet.sa, 15 MG PO Q12, TAB 09/26/17 Acetaminophen* (Tylenol*) 325 Mg Tablet, 650 MG PO Q4H PRN for FOR FEVER 100 & ABOVE, TAB 09/26/17 Acetaminophen* (Tylenol*) 500 Mg Tab, 1000 MG PO Q6H PRN for PAIN 7-9/10, TAB 09/26/17 Acetaminophen* (Tylenol*) 325 Mg Tablet, 650 MG PO Q6H PRN for MILD PAIN LEVEL 1-3, TAB 09/26/17 Discontinued Scripts Levofloxacin* (Levofloxacin*) 500 Mg Tablet, 500 MG PO DAILY, #7 TAB Prov:MAGALYS PAUL 03/27/18 Docusate Sodium* (Colace*) 100 Mg Capsule, 100 MG PO TID, #30 CAP Prov:ANY REVELES MD 03/24/18 Hydrocodone/Acetaminophen ([place] 5-325 Tablet) 1 Each Tablet, 1 TAB PO Q6H PRN for PAIN, #20 TAB Prov:ANY REVELES MD 03/24/18 Follow-up Plan Please take your medications as prescribed, see your doctor in the clinic in the next 1 week. Primary Care Provider Not On Staff Doctor Pending Labs Laboratory Tests Test 08/31/18 05:53 White Blood Count 4.4 10^3/ul (4.8-10.8) Red Blood Count 2.65 10^6/ul (4.20-5.40) Hemoglobin 8.9 g/dl (12.0-16.0) Hematocrit 27.1 % (37.0-47.0) Mean Corpuscular Volume 102.3 fl (82.0-101.0) Mean Corpuscular Hemoglobin 33.6 pg (29.0-33.0) Mean Corpuscular Hemoglobin Concent 32.8 g/dl (32.0-37.0) Red Cell Distribution Width 15.5 % (11.5-14.5) Platelet Count 105 10^3/UL (140-415) Mean Platelet Volume 9.4 fl (7.4-10.4) Immature Granulocytes % 0.500 % (0.001-0.429) Neutrophils % 67.8 % (39.0-77.0) Lymphocytes % 17.2 % (15.0-51.0) Monocytes % 8.1 % (0.0-11.0) Eosinophils % 5.9 % (0.0-7.0) Basophils % 0.5 % (0.0-2.0) Nucleated Red Blood Cells % 0.0 /100WBC (0.0-0.0) Immature Granulocytes # 0.020 10^3/ul (0.0-0.031) Neutrophils # 3.0 10^3/ul (1.6-7.5) Lymphocytes # 0.8 10^3/ul (0.8-2.9) Monocytes # 0.4 10^3/ul (0.3-0.9) Eosinophils # 0.3 10^3/ul (0.0-0.5) Basophils # 0.0 10^3/ul (0.0-0.1) Nucleated Red Blood Cells # 0.0 10^3/ul (0.0-0.0) Sodium Level 130 mmol/L (135-144) Potassium Level 5.1 mmol/L (3.5-5.1) Chloride Level 92 mmol/L (97-110) Carbon Dioxide Level 26 mmol/L (21-31) Anion Gap 12 (5-13) Blood Urea Nitrogen 39 mg/dl (7-20) Creatinine 5.23 mg/dl (0.44-1.00) Est Glomerular Filtrat Rate mL/min 8 mL/min (>60) Glucose Level 86 mg/dl (70-220) Hemoglobin A1c 4.7 % (0-5.9) Calcium Level 7.4 mg/dl (8.4-10.2) Magnesium Level 2.3 mg/dl (1.7-2.5) Total Bilirubin 0.0 mg/dl (0.2-1.3) Direct Bilirubin 0.00 mg/dl (0.00-0.20) Indirect Bilirubin 0.0 mg/dl (0-1.1) Aspartate Amino Transf (AST/SGOT) 18 IU/L (15-46) Alanine Aminotransferase (ALT/SGPT) 9 IU/L (13-69) Alkaline Phosphatase 125 IU/L (42-121) Total Protein 6.7 g/dl (6.1-8.1) Albumin 3.8 g/dl (3.3-4.9) Globulin 2.90 g/dl (1.3-3.2) Albumin/Globulin Ratio 1.31 Microbiology Date/Time Source Procedure Growth Status 08/30/18 14:23 Throat Throat Culture - Preliminary Normal Respiratory Resulted Christal JAYCEE LUND Aug 31, 2018 13:10
[2018-08-31] MEDS: LORAZEPAM 2 MG INJ IV PRN (14:58)
== END 2018-08-31 22:00 | disposition home health service (06) ==
LOC: E/R 19:57 → PP2 08-30 02:28
PROVIDERS: ADMIT Internal Medicine; ATTEND Hospitalist
DX: J02.9 Acute pharyngitis, unspecified (principal); R05 Cough; N39.0 Urinary tract infection, site not specified; I12.0 Hypertensive chronic kidney disease with stage 5 chronic kidney disease or end stage renal disease; N18.6 End stage renal disease; Z99.2 Dependence on renal dialysis; M32.9 Systemic lupus erythematosus, unspecified; Z87.891 Personal history of nicotine dependence; D64.9 Anemia, unspecified; E87.0 Hyperosmolality and hypernatremia; M89.8X9 Other specified disorders of bone, unspecified site
CPT/HCPCS: 36415; 71045; 80053; 81001; 83036; 83605; 83735; 84484; 85025; 85610; 85730; 86706; 87040; 87070; 87086; 87340; 90935; 93005; 94664; 96365; 97161; 99285; G0378; J0456; J0692; J0696; J1644; J2060; J2405; J3370

== ENCOUNTER 2018-11-23 13:27 | Inpatient (IN) | payer MEDICARE, OTHER ==
[~2018-11-23] VITALS: Ht 152.4 cm; Wt 50.0 kg
[~2018-11-23 13:27] MED LIST changes: -ACET325T33 PO; -AMIN30LI PO; -AMLO5TAB4 PO; -ASC500 PO; +BENZ1LOZ4 MT; -BISA10SU75 PR; -CHOL100062 PO; -CITA20TA8 PO; -CRAN3875 PO; -CRAN425C6 PO; -DICL100G37 TOP; -DOCU-144 PO; -EPOE3000 SC; -HEPA100D39 IV; -HYDR-4011 PO; -LEVO500T10 PO; +LEVO750T8 PO; -LOPE-123 PO; -MORP15TA92 PO; -MULT-105 PO; -OMEP20CA16 PO; -PRED5TAB PO; -SIME80TA60 PO; -TYL500 PO
[2018-11-23] MEDS ORDERED: CEFEPIME 1GM/50 ML (PMX) 50 ML IVPB STA (14:06)
[2018-11-23] MEDS ORDERED: ONDANSETRON 4 MG INJ IV STA (14:06)
[2018-11-23] MEDS ORDERED: VANCOMYCIN 1 GM (PMX) 250 ML IVPB STA (14:06)
[2018-11-23] MEDS ORDERED: morphine 4 MG/ML VIAL IV STA (14:06)
[2018-11-23] MEDS ORDERED: AMLO5TAB4 PO (14:44)
[2018-11-23] MEDS ORDERED: LOSA25TA12 PO (14:45)
[2018-11-23] MEDS ORDERED: PATI8.4P PO (14:45)
[2018-11-23] MEDS ORDERED: OMEP40CA6 PO (14:45)
[2018-11-23] MEDS ORDERED: LYR75 PO (14:46)
[2018-11-23] MEDS ORDERED: ASPIRIN 325 MG TAB PO ONE (16:00)
--- NOTE | 2018-11-23 16:06 | HP ---
Date/Time of Note Date/Time of Note DATE: 11/23/18 TIME: 16:03 Assessment/Plan VTE Prophylaxis SCD applied (from Nsg): No SCD contraindicated: other Pharmacological prophylaxis: heparin Lines/Catheters IV Catheter Type (from Nrsg): [place] Lock Assessment/Plan Hospital Course Assessment and plan: 63-year-old female past medical history of end-stage renal disease on dialysis, lupus, hypertension, prior UTI, who presents with chest pain. # cp: Rule out acute coronary syndrome versus musculoskeletal source. -Trend troponins every 6 hours x3, put on high-dose aspirin, morphine, oxygen, nitro glycerin as needed -Follow-up TSH, A1c lipid panel, order 2D echocardiogram as well -Obtain PT eval #End-stage renal disease: On dialysis -Continue dialysis per renal recommendations as will consult on #History of lupus: Monitor for now #Hypertension: Blood pressure stable, continue current medications #GI prophylaxis: Omeprazole Result Diagram: 11/23/18 1416 11/23/18 1416 Results 24hrs Laboratory Tests Test 11/23/18 14:16 11/23/18 14:20 White Blood Count 3.8 L Red Blood Count 3.50 #L Hemoglobin 10.9 #L Hematocrit 33.9 #L Mean Corpuscular Volume 96.9 Mean Corpuscular Hemoglobin 31.1 Mean Corpuscular Hemoglobin Concent 32.2 Red Cell Distribution Width 13.8 Platelet Count 145 # Mean Platelet Volume 10.1 Immature Granulocytes % 0.300 Neutrophils % 72.9 Lymphocytes % 9.9 L Monocytes % 7.8 Eosinophils % 8.6 H Basophils % 0.5 Nucleated Red Blood Cells % 0.0 Immature Granulocytes # 0.010 Neutrophils # 2.8 Lymphocytes # 0.4 L Monocytes # 0.3 Eosinophils # 0.3 Basophils # 0.0 Nucleated Red Blood Cells # 0.0 Sodium Level 138 Potassium Level 4.7 Chloride Level 96 L Carbon Dioxide Level 29 Anion Gap 13 Blood Urea Nitrogen 25 H Creatinine 3.19 H Est Glomerular Filtrat Rate mL/min 15 L Glucose Level 150 Calcium Level 8.1 L Troponin I 0.021 POC Venous Lactate 1.0 HPI/ROS Admit Date/Time Admit Date/Time Hx of Present Illness 63-year-old female past medical history of end-stage renal disease on dialysis, lupus, hypertension, prior UTI, who presents with chest pain. Patient states the symptoms first began about 3 weeks ago and she went to her primary care doctor about 2 weeks ago and had chest x-ray performed at that time. She was diagnosed with a small pneumonia and given antibiotics for little over a week. She took those antibiotics with minimal improvement in her symptoms until today when her chest pain recurred. She describes the pain occurring near her right breast and radiating to her back she denies any trauma to the area no falls she said some nausea symptoms for 1 day as well but no vomiting no upper lower GI bleeding no shortness of breath no fevers or chills. When she came in today she had a chest x-ray that showed: IMPRESSION: 1. Moderate right and small left pleural effusions, not significantly changed when compared to the prior examination. 2. Right basilar atelectasis versus pneumonia, also unchanged. 3. Interval improvement in degree of pulmonary vascular congestion. 4. Mild cardiomegaly. Patient states she has been going to dialysis regularly including her last s ession being earlier today. No apparent prior history of any strokes or heart attacks in the past. PMH/Family/Social Past Medical History Medications Current Medications Vancomycin HCl 250 ml @ 125 mls/hr ONCE STAT IVPB Last administered on 11/23/18at 15:50; Admin Dose 125 MLS/HR; Start 11/23/18 at 14:06; Stop 11/23/18 at 16:05 Ondansetron HCl (Zofran Inj) 4 mg ER BRIDGE PRN IV NAUSEA/VOMITING; Start 11/23/18 at 16:30; Stop 11/24/18 at 16:29 Acetaminophen (Tylenol Tab) 650 mg ER BRIDGE PRN PO .MILD PAIN 1-3 OR TEMP; Start 11/23/18 at 16:30; Stop 11/24/18 at 16:29 Coded Allergies: lidocaine (Unverified Allergy, Unknown, 11/23/18) Past Surgical History Past Surgical Hx: other (AV fistula) Family History Significant Family History: no pertinent family hx Social History Alcohol Use: none Smoking Status: Former smoker Drug Use: none (AV fistula) Exam/Review of Systems Vital Signs Vitals Vital Signs Date Temp Pulse Resp B/P (MAP) Pulse Ox O2 O2 Flow FiO2 Time Delivery Rate 11/23/18 74 12 144/63 97 Nasal 2.0 15:23 (90) Cannula 7/18/19 98.7 13:37 Exam Exam Constitutional: alert, oriented, well developed Head: normocephalic, atraumatic Eyes: EOMI, PERRL Respiratory: clear to auscultation, normal air movement Cardiovascular: regular rate and rhythm, there is some tenderness to sternal palpation Gastrointestinal: soft Extremities: normal pulses Neuro: No focal deficits JAYCEE LUND Nov 23, 2018 16:06
[2018-11-23] MEDS ORDERED: NACL 0.9% 3 ML SYG IV SCH (16:30)
[2018-11-23] MEDS ORDERED: NITROGLYCERIN (SL) 0.4 MG TAB SL PRN (16:30)
[2018-11-23] MEDS ORDERED: MAGNESIUM HYDROXIDE 30ML CUP PO PRN (16:30)
[2018-11-23] MEDS ORDERED: LORAZEPAM 2 MG INJ IV PRN (16:30)
[2018-11-23] MEDS ORDERED: hydrALAzine 20 MG INJ IV PRN (16:30)
[2018-11-23] MEDS ORDERED: ACETAMINOPHEN 325 MG TAB PO PRN ×2 (16:30)
[2018-11-23] MEDS ORDERED: DOCUSATE SODIUM 100 MG CAP PO PRN (16:30)
[2018-11-23] MEDS ORDERED: ONDANSETRON 4 MG INJ IV PRN ×2 (16:30)
[2018-11-23] MEDS ORDERED: ALBUTEROL/IPRATROPIUM (NEB) 3 ML AMP HHN PRN (16:30)
--- NOTE | 2018-11-23 18:02 | ERD ---
ER Documentation Chief Complaint Chief Complaint neck , shoulder pain and right breas pain - on dialysis HPI Patient is a 63-year-old female with history of hypertension and diabetes who presents with pain. She said that she has pain from her neck to her lower back and chest pain. She said that it is "real bad". It started 2 to 3 weeks ago with right chest pain but was worse today. She went to her primary doctor previously who told her she had a touch of pneumonia and gave her a prescription for Keflex which she finished today. She did have full dialysis today. She took [place] for pain. She has not called her primary doctor as of yet. Upon review of old medical records this is the patient's sixth visit to the ER since 2017. ROS All systems reviewed and are negative except as per history of present illness. Medications Home Meds Reported Medications Pregabalin* (Lyrica*) 75 Mg Capsule, 75 MG PO BID, CAP 11/23/18 Patiromer Calcium Sorbitex ([place]) 8.4 Gm Powd.pack, 8.4 GM PO BID ON NON-DIALYSIS DAYS 11/23/18 Omeprazole* (Omeprazole*) 40 Mg Capsule.dr, 40 MG PO QHS, #30 CAP 11/23/18 Losartan Potassium* (Losartan Potassium*) 25 Mg Tablet, 25 MG PO BID, TAB 11/23/18 Amlodipine Besylate* (Norvasc*) 5 Mg Tablet, 5 MG PO QHS, TAB 11/23/18 Discontinued Reported Medications Pregabalin* (Lyrica*) 75 Mg Capsule, 75 MG PO BID, CAP 08/30/18 Hydrocodone/Acetaminophen ([place] 10-325 Tablet) 1 Each Tablet, 1 EACH PO Q4H for PAIN -01/16, TAB 09/26/17 Discontinued Scripts Levofloxacin* (Levofloxacin*) 750 Mg Tablet, 750 MG PO DAILY for 7 Days, #7 TAB Prov:JAYCEE LUND S. 08/31/18 Benzocaine/Menthol (SORE THROAT LOZENGE) 1 Each Lozenge, 1 LOZENGE MT Q1H PRN for sore throat and cough , #14 LOZENGE Prov:JAYCEE LUND S. 08/31/18 Allergies Allergies: Coded Allergies: lidocaine (Unverified Allergy, Unknown, 11/23/18) PMhx/Soc History of Surgery: Yes (cholecystectomy, endometriosis,angiogram) Anesthesia Reaction: No Hx Neurological Disorder: No Hx Respiratory Disorders: Yes (Bronchitis) Hx Cardiac Disorders: Yes (HTN) Hx Psychiatric Problems: No Hx Miscellaneous Medical Probl: Yes (ESRD , ON HD , HTN, UTI, hx of PNA) Hx Alcohol Use: No Hx Substance Use: No Hx Tobacco Use: Yes Smoking Status: Former smoker FmHx Family History: No coronary disease Physical Exam Vitals Vital Signs Date Temp Pulse Resp B/P (MAP) Pulse Ox O2 O2 Flow FiO2 Time Delivery Rate 11/23/18 74 12 144/63 97 Nasal 2.0 15:23 (90) Cannula 11/23/18 Nasal 2 15:23 Cannula 11/23/18 98.7 81 24 144/66 94 13:37 (92) Physical Exam Const: No acute distress Head: Atraumatic Eyes: Normal Conjunctiva ENT: Normal External Ears, Nose and Mouth. Neck: Full range of motion. No meningismus. Resp: Clear to auscultation bilaterally Cardio: Regular rate and rhythm, no murmurs Abd: Soft, non tender, non distended. Normal bowel sounds Skin: No petechiae or rashes Back: No midline or flank tenderness Ext: No cyanosis, or edema Neur: Awake and alert Psych: Normal Mood and Affect Result Diagram: 11/23/18 1416 11/23/18 1416 Results 24 hrs Laboratory Tests Test 11/23/18 14:16 11/23/18 14:20 11/23/18 16:32 11/23/18 16:33 White Blood Count 3.8 10^3/ul Red Blood Count 3.50 10^6/ul Hemoglobin 10.9 g/dl Hematocrit 33.9 % Mean Corpuscular 96.9 fl Volume Mean Corpuscular 31.1 pg Hemoglobin Mean Corpuscular 32.2 g/dl Hemoglobin Concent Red Cell 13.8 % Distribution Width Platelet Count 145 10^3/UL Mean Platelet 10.1 fl Volume Immature 0.300 % Granulocytes % Neutrophils % 72.9 % Lymphocytes % 9.9 % Monocytes % 7.8 % Eosinophils % 8.6 % Basophils % 0.5 % Nucleated Red Blood 0.0 /100WBC Cells % Immature 0.010 10^3/ul Granulocytes # Neutrophils # 2.8 10^3/ul Lymphocytes # 0.4 10^3/ul Monocytes # 0.3 10^3/ul Eosinophils # 0.3 10^3/ul Basophils # 0.0 10^3/ul Nucleated Red Blood 0.0 10^3/ul Cells # Sodium Level 138 mmol/L Potassium Level 4.7 mmol/L Chloride Level 96 mmol/L Carbon Dioxide 29 mmol/L Level Anion Gap 13 Blood Urea Nitrogen 25 mg/dl Creatinine 3.19 mg/dl Est Glomerular 15 mL/min Filtrat Rate mL/min Glucose Level 150 mg/dl Calcium Level 8.1 mg/dl Troponin I 0.021 ng/ml 0.028 ng/ml POC Venous Lactate 1.0 mmol/L Prothrombin Time 15.9 Sec Prothrombin Time 1.2 Ratio INR International 1.26 Normalized Ratio Activated 38.0 Sec Partial Thromboplas t Time Lactic Acid Level 0.9 mmol/L Creatine Kinase 112 IU/L Creatine Kinase 1.9 Index Creatinine Kinase 2.14 ng/ml MB (Mass) Lipase 64 U/L Free Thyroxine 1.45 ng/dl Current Medications Medications Dose Sig/Alana Start Time Status Last (Trade) Ordered Route PRN Stop Time Admin Dose Reason Admin Cefepime HCl 50 ml @ ONCE STAT 11/23/18 DC 11/23/18 100 mls/hr IVPB 14:06 14:27 11/23/18 14:35 Vancomycin 250 ml @ ONCE STAT 11/23/18 DC 11/23/18 HCl 125 mls/hr IVPB 14:06 15:50 11/23/18 16:05 Morphine 4 mg ONCE STAT 11/23/18 DC 11/23/18 Sulfate IV 14:06 14:27 (morphine) 11/23/18 14:07 Ondansetron 4 mg ONCE STAT 11/23/18 DC 11/23/18 HCl (Zofran IV 14:06 14:27 Inj) 11/23/18 14:07 Aspirin 325 mg ONCE ONCE 11/23/18 DC 11/23/18 (Aspirin) PO 16:00 16:32 11/23/18 16:01 Ondansetron 4 mg ER BRIDGE 11/23/18 HCl (Zofran PRN IV 16:30 Inj) NAUSEA/VOMITI 11/24/18 16:29 NG 650 mg ER BRIDGE 11/23/18 Acetaminophen PRN PO 16:30 (Tylenol .MILD PAIN 11/24/18 16:29 Tab) 1-3 OR TEMP Losartan 25 mg BID PO 11/23/18 UNV Potassium 21:00 (Cozaar) Patiromer 8.4 gm BID PO 11/23/18 UNV (Veltassa) 21:00 Pregabalin 75 mg BID PO 11/23/18 UNV (Lyrica) 21:00 40 mg QHS PO 11/23/18 UNV Miscellaneous 21:00 Information IV Flush 3 ml PER 11/23/18 UNV (NS 3 ml) PROTOCOL IV 16:30 Ondansetron 4 mg Q6H PRN 11/23/18 UNV HCl (Zofran IV 16:30 Inj) NAUSEA/VOMITI NG 650 mg Q6H PRN 11/23/18 UNV Acetaminophen PO .PAIN 1-3 16:30 (Tylenol OR TEMP Tab) 1 tab Q6H PRN 11/23/18 UNV Acetaminophen PO .MOD PAIN 16:30 / 4-6 Hydrocodone Bitart ([place] (5/325)) Morphine 2 mg Q4H PRN 11/23/18 UNV Sulfate IV .SEVERE 16:30 (morphine) PAIN 7-10 Docusate 100 mg Q12H PRN 11/23/18 UNV Sodium PO 16:30 (Colace) .CONSTIPATION Magnesium 30 ml DAILY PRN 11/23/18 UNV Hydroxide PO 16:30 (Milk Of Mag) .CONSTIPATION Heparin 5,000 unit Q12 SC 11/23/18 UNV Sodium 21:00 (Porcine) (Heparin (5000 Units/1ml)) Lorazepam 0.5 mg Q6H PRN 11/23/18 UNV (Ativan) IV ANXIETY 16:30 Albuterol/ 3 ml Q4H RESP 11/23/18 UNV Ipratropium THERAPY PRN 16:30 (Duoneb) HHN SHORTNESS OF BREATH Hydralazine 10 mg Q6H PRN 11/23/18 UNV HCl IV ELEVATED 16:30 (Apresoline) BLOOD PRESSURE 1 tab Q5M PRN 11/23/18 UNV Nitroglycerin SL ANGINA 16:30 (Nitroglyceri n (Sl Tab) 0.4 Mg) Aspirin 325 mg DAILY PO 11/24/18 UNV (Ecotrin) 09:00 Procedures/MDM EKG read by me: Rate/Rhythm: Regular rate and rhythm Intervals: Normal Impression: No evidence of ischemia or arrhythmia Chest x-ray read by radiology. Patient is a 63-year-old female with hypertension and dialysis who presents with chest pain. I am concerned about acute coronary syndrome. I doubt pneumonia, pneumothorax, pulmonary embolism, or aortic dissection. The patient will be admitted to the care of the panel team to a telemetry observation bed. The patient was given aspirin. Departure Diagnosis: Primary Impression: Chest pain Chest pain type: unspecified Qualified Codes: R07.9 - Chest pain, unspe cified Condition: SARA Long MD Nov 23, 2018 18:02
[2018-11-23 20:00] VITALS: BP 154/68; PULSE 67; RESP 18
[2018-11-23 20:30] VITALS: Ht 152.4 cm; Wt 50.0 kg
[2018-11-23] MEDS ORDERED: PATIROMER CALCIUM SORBITEX 8.4 GM PKT PO SCH (21:00)
[2018-11-23] MEDS: HEPARIN 5,000 UNIT/1 ML VIAL SC SCH (21:00)
[2018-11-23] MEDS ORDERED: NON-FORMULARY/PATIENT OWN MED (Omeprazole* 40 MG) PO SCH (21:00)
[2018-11-23] MEDS: PANTOPRAZOLE (EC) 40 MG TAB PO SCH (21:30)
[2018-11-23] MEDS: PATIROMER CALCIUM SORBITEX 16.8 GM PO SCH (22:00)
[2018-11-23] MEDS: PREGABALIN 75 MG CAP PO SCH (22:16)
[2018-11-23] MEDS: LOSARTAN 25 MG TAB PO SCH (22:17)
[2018-11-23] MEDS: morphine 2 MG INJ IV PRN (23:30)
[2018-11-24] VITALS: BP 158/71; PULSE 75; RESP 18
[2018-11-24 04:00] VITALS: BP 135/61; PULSE 66; RESP 18
[2018-11-24] MEDS: PANTOPRAZOLE (EC) 40 MG TAB PO SCH (06:17)
[2018-11-24] MEDS: HYDROCODONE/APAP (5/325) TAB PO PRN (06:26)
[2018-11-24 07:08] VITALS: BP 144/62; PULSE 75; RESP 20
[2018-11-24] MEDS: PATIROMER CALCIUM SORBITEX 16.8 GM PO SCH ×3 (09:00→21:10)
[2018-11-24] MEDS: HEPARIN 5,000 UNIT/1 ML VIAL SC SCH ×2 (09:00→21:00)
[2018-11-24] MEDS: PREGABALIN 75 MG CAP PO SCH ×2 (09:02→21:08)
[2018-11-24] MEDS: ASPIRIN (EC) 325 MG TAB PO SCH (09:03)
[2018-11-24] MEDS: LOSARTAN 25 MG TAB PO SCH ×2 (09:03→21:09)
[2018-11-24] MEDS ORDERED: NA POLYST SULFON 15 GM/60 ML BTL PO ONE (11:00)
[2018-11-24 11:11] VITALS: BP 140/65; PULSE 69; RESP 20
--- NOTE | 2018-11-24 12:24 | RADRPT ---
Echocardiogram Report Patient Name: Lisa ROCK ID: [id number] : 1955 (63y 4m)Study Date: 11/24/2018 7:26:41 AM Gender: FAccession #: [id number] Tech: GustavoAshley Lizarraga [facility] Location: 51 Ref.Physician: JAYCEE LUND Height(Cm): BSA: Weight(Kg): Quality: AdequateOrder Physician: JAYCEE LUND Account #: Procedures: Echocardiographic Report: Transthoracic echocardiogram with complete 2D, M-Mode, and doppler examination. Indications: Chest Pain. Measurements: 2D/M Mode Doppler Measurement Value Normal Range Measurement Value Normal Range LVIDd 2D 5.9 [ 3.8 - 5.2 ] cm AV Peak Tirso 1.6 [ 100.0 - 170.0 ] cm/sec LVIDs 2D 4.9 [ 2.2 - 3.5 ] cm AV Peak PG 10.0 [ 2.0 - 9.0 ] mmHg LVPWd 2D 0.8 [ 0.6 - 0.9 ] cm LVOT Peak Tirso 0.9 [ 70.0 - 110.0 ] cm/sec IVSd 2D 0.8 [ 0.6 - 0.9 ] cm LVOT Peak PG 3.0 [ 2.0 - 6.0 ] mmHg AoR Diam 2D 2.4 [ 2.3 - 3.1 ] cm MV E Peak [place] 1.0 [ 60.0 - 130.0 ] cm/sec EDV 2D 174.0 [ 46.0 - 106.0 ] ml MV A Peak [place] 1.1 [ 100.0 - 120.0 ] cm/sec ESV 2D 111.0 [ 14.0 - 42.0 ] ml MV E/A 0.9 [ 0.8 - 1.5 ] ratio EF 2D 36.2 [ 54.0 - 74.0 ] percent MV Decel Time 176 [ 104 - 258 ] msec LA Dimen 2D 3.8 [ 2.7 - 3.8 ] cm Lat E` Tirso 0.0 [ 10.0 - 15.0 ] cm/sec Lateral E/E` 20.3 [ 1.0 - 2.0 ] ratio Med E` Tirso 0.0 cm/sec MV E/A 0.9 [ 0.8 - 1.5 ] ratio TR Peak Tirso 3.2 [ 100.0 - 280.0 ] cm/sec TR Peak PG 40.0 mmHg RVSP 48.0 [ 10.0 - 36.0 ] mmHg RA Pressure 8.0 mmHg Findings: Left Ventricle: Normal left ventricular wall thickness. Moderate enlargement of left ventricle cavity. Severe global left ventricular systolic dysfunction. Ejection fraction is visually estimated at 30-35 %. Tissue Doppler/Mitral Doppler indices are consistent with impaired relaxation (Stage I diastolic dysfunction). Right Ventricle: Normal right ventricular systolic function. Mild enlargement of right ventricle. Left Atrium: There is moderate enlargement of left atrium. Right Atrium: There is moderate enlargement of right atrium. Mitral Valve: Mild mitral valve regurgitation. Aortic Valve: Normal appearance of the aortic valve. No significant aortic stenosis or insufficiency. Tricuspid Valve: Normal appearance of the tricuspid valve. The estimated Peak RVSP is 55 mmHg. There is moderate tricuspid regurgitation. Pulmonic Valve: Normal pulmonic valve appearance. There is mild pulmonic regurgitation. Pericardium: Small pericardial effusion. Pleural effusion seen. Aorta: Normal aortic root. IVC: Dilated IVC without respiratory collapse consistent with elevated right atrial pressure. Conclusions: Normal left ventricular wall thickness. Moderate enlargement of left ventricle cavity. Severe global left ventricular systolic dysfunction. Ejection fraction is visually estimated at 30-35 %. Tissue Doppler/Mitral Doppler indices are consistent with impaired relaxation (Stage I diastolic dysfunction). Normal right ventricular systolic function. Mild enlargement of right ventricle. There is moderate tricuspid regurgitation. Small pericardial effusion. Pleural effusion seen. The estimated Peak RVSP is 55 mmHg. Dilated IVC without respiratory collapse consistent with elevated right atrial pressure. Electronically Signed By: Orlando Cash 2018-11-24 12:23:29 PDT
--- NOTE | 2018-11-24 13:48 | PN ---
Date/Time of Note Date/Time of Note DATE: 11/24/18 TIME: 13:46 Assessment/Plan VTE Prophylaxis SCD applied (from Nsg): No SCD contraindicated: other Pharmacological prophylaxis: heparin Lines/Catheters IV Catheter Type (from Nrs): [place] Urinary Cath still in place: No Assessment/Plan Hospital Course S: Patient has negative troponins. However still complaining of chest pain. Waiting to be seen by renal team O: VS- see below PE: Constitutional: alert, oriented, well developed Head: normocephalic, atraumatic Eyes: EOMI, PERRL Respiratory: clear to auscultation, normal air movement Cardiovascular: regular rate and rhythm, there is some tenderness to sternal palpation Gastrointestinal: soft Extremities: normal pulses Neuro: No focal deficits 2D echo: Conclusions: Normal left ventricular wall thickness. Moderate enlargement of left ventricle cavity. Severe global left ventricular systolic dysfunction. Ejection fraction is visually estimated at 30-35 %. Tissue Doppler/Mitral Doppler indices are consistent with impaired relaxation (Stage I diastolic dysfunction). Normal right ventricular systolic function. Mild enlargement of right ventricle. There is moderate tricuspid regurgitation. Small pericardial effusion. Pleural effusion seen. The estimated Peak RVSP is 55 mmHg. Dilated IVC without respiratory collapse consistent with elevated right atrial pressure. Assessment and plan: 63-year-old female past medical history of end-stage renal disease on dialysis, lupus, hypertension, prior UTI, who presents with chest pain. # cp: has ruled out acute coronary syndrome. Patient does admit to high stress episode (big argument with her mother) 48 hours ago, this could be contributing to patient's pain symptoms. -Monitor, continue current medications -Echocardiogram results reviewed, will obtain cardiology consult as well -Follow-up PT eval #End-stage renal disease: On dialysis -Continue dialysis per renal recommendations, they have been consulted #History of lupus: Monitor for now #Hypertension: Blood pressure stable, continue current medications #GI prophylaxis: Omeprazole Result Diagram: 11/24/18 0544 11/24/18 0544 Results 24hrs Laboratory Tests Test 11/23/18 14:16 11/23/18 14:20 11/23/18 16:32 11/23/18 16:33 White Blood Count 3.8 L Red Blood Count 3.50 #L Hemoglobin 10.9 #L Hematocrit 33.9 #L Mean Corpuscular 96.9 Volume Mean Corpuscular 31.1 Hemoglobin Mean Corpuscular 32.2 Hemoglobin Concent Red Cell 13.8 Distribution Width Platelet Count 145 # Mean Platelet Volume 10.1 Immature 0.300 Granulocytes % Neutrophils % 72.9 Lymphocytes % 9.9 L Monocytes % 7.8 Eosinophils % 8.6 H Basophils % 0.5 Nucleated Red Blood 0.0 Cells % Immature 0.010 Granulocytes # Neutrophils # 2.8 Lymphocytes # 0.4 L Monocytes # 0.3 Eosinophils # 0.3 Basophils # 0.0 Nucleated Red Blood 0.0 Cells # Sodium Level 138 Potassium Level 4.7 Chloride Level 96 L Carbon Dioxide Level 29 Anion Gap 13 Blood Urea Nitrogen 25 H Creatinine 3.19 H Est Glomerular 15 L Filtrat Rate mL/min Glucose Level 150 Calcium Level 8.1 L Troponin I 0.021 0.028 POC Venous Lactate 1.0 Prothrombin Time 15.9 H Prothrombin Time 1.2 Ratio INR International 1.26 Normalized Ratio Activated 38.0 H Partial Thromboplast Time Lactic Acid Level 0.9 Creatine Kinase 112 Creatine Kinase 1.9 Index Creatinine Kinase MB 2.14 (Mass) Lipase 64 Free Thyroxine 1.45 Test 11/23/18 22:03 11/24/18 05:44 Lactic Acid Level 0.9 Creatine Kinase 99 Creatine Kinase 2.1 Index Creatinine Kinase MB 2.06 (Mass) Troponin I 0.025 White Blood Count 3.0 #L Red Blood Count 3.26 L Hemoglobin 10.1 L Hematocrit 32.9 L Mean Corpuscular 100.9 Volume Mean Corpuscular 31.0 Hemoglobin Mean Corpuscular 30.7 L Hemoglobin Concent Red Cell 14.0 Distribution Width Platelet Count 132 L Mean Platelet Volume 10.4 Immature 0.300 Granulocytes % Neutrophils % 53.9 Lymphocytes % 18.9 Monocytes % 12.3 H Eosinophils % 13.9 H Basophils % 0.7 Nucleated Red Blood 0.0 Cells % Immature 0.010 Granulocytes # Neutrophils # 1.6 Lymphocytes # 0.6 L Monocytes # 0.4 Eosinophils # 0.4 Basophils # 0.0 Nucleated Red Blood 0.0 Cells # Sodium Level 136 Potassium Level 6.3 *H Chloride Level 96 L Carbon Dioxide Level 31 Anion Gap 9 Blood Urea Nitrogen 35 H Creatinine 4.36 #H Est Glomerular 10 L Filtrat Rate mL/min Glucose Level 74 # Hemoglobin A1c 4.9 Calcium Level 7.6 L Phosphorus Level 4.6 Magnesium Level 2.2 Triglycerides Level 54 Cholesterol Level 85 L LDL Cholesterol, 26 Calculated HDL Cholesterol 48 Cholesterol/HDL 1.7 Ratio Thyroid Stimulating 3.400 Hormone (TSH) Exam/Review of Systems Exam Vitals Vital Signs Date Temp Pulse Resp B/P (MAP) Pulse Ox O2 O2 Flow FiO2 Time Delivery Rate 11/24/18 98.0 69 20 140/65 98 Nasal 11:11 (90) Cannula 11/24/18 2.0 01:29 Intake and Output 11/23/18 11/23/18 11/24/18 1515:00 23:00 07:00 IntakeIntake Total 150 ml BalanceBalance 150 ml Results Results 24hrs Laboratory Tests Test 11/23/18 14:16 11/23/18 14:20 11/23/18 16:32 11/23/18 16:33 White Blood Count 3.8 L Red Blood Count 3.50 #L Hemoglobin 10.9 #L Hematocrit 33.9 #L Mean Corpuscular 96.9 Volume Mean Corpuscular 31.1 Hemoglobin Mean Corpuscular 32.2 Hemoglobin Concent Red Cell 13.8 Distribution Width Platelet Count 145 # Mean Platelet Volume 10.1 Immature 0.300 Granulocytes % Neutrophils % 72.9 Lymphocytes % 9.9 L Monocytes % 7.8 Eosinophils % 8.6 H Basophils % 0.5 Nucleated Red Blood 0.0 Cells % Immature 0.010 Granulocytes # Neutrophils # 2.8 Lymphocytes # 0.4 L Monocytes # 0.3 Eosinophils # 0.3 Basophils # 0.0 Nucleated Red Blood 0.0 Cells # Sodium Level 138 Potassium Level 4.7 Chloride Level 96 L Carbon Dioxide Level 29 Anion Gap 13 Blood Urea Nitrogen 25 H Creatinine 3.19 H Est Glomerular 15 L Filtrat Rate mL/min Glucose Level 150 Calcium Level 8.1 L Troponin I 0.021 0.028 POC Venous Lactate 1.0 Prothrombin Time 15.9 H Prothrombin Time 1.2 Ratio INR International 1.26 Normalized Ratio Activated 38.0 H Partial Thromboplast Time Lactic Acid Level 0.9 Creatine Kinase 112 Creatine Kinase 1.9 Index Creatinine Kinase MB 2.14 (Mass) Lipase 64 Free Thyroxine 1.45 Test 11/23/18 22:03 11/24/18 05:44 Lactic Acid Level 0.9 Creatine Kinase 99 Creatine Kinase 2.1 Index Creatinine Kinase MB 2.06 (Mass) Troponin I 0.025 White Blood Count 3.0 #L Red Blood Count 3.26 L Hemoglobin 10.1 L Hematocrit 32.9 L Mean Corpuscular 100.9 Volume Mean Corpuscular 31.0 Hemoglobin Mean Corpuscular 30.7 L Hemoglobin Concent Red Cell 14.0 Distribution Width Platelet Count 132 L Mean Platelet Volume 10.4 Immature 0.300 Granulocytes % Neutrophils % 53.9 Lymphocytes % 18.9 Monocytes % 12.3 H Eosinophils % 13.9 H Basophils % 0.7 Nucleated Red Blood 0.0 Cells % Immature 0.010 Granulocytes # Neutrophils # 1.6 Lymphocytes # 0.6 L Monocytes # 0.4 Eosinophils # 0.4 Basophils # 0.0 Nucleated Red Blood 0.0 Cells # Sodium Level 136 Potassium Level 6.3 *H Chloride Level 96 L Carbon Dioxide Level 31 Anion Gap 9 Blood Urea Nitrogen 35 H Creatinine 4.36 #H Est Glomerular 10 L Filtrat Rate mL/min Glucose Level 74 # Hemoglobin A1c 4.9 Calcium Level 7.6 L Phosphorus Level 4.6 Magnesium Level 2.2 Triglycerides Level 54 Cholesterol Level 85 L LDL Cholesterol, 26 Calculated HDL Cholesterol 48 Cholesterol/HDL 1.7 Ratio Thyroid Stimulating 3.400 Hormone (TSH) Medications Medication Current Medications Losartan Potassium (Cozaar) 25 mg BID PO Last administered on 11/24/18at 09:03; Admin Dose 25 MG; Start 11/23/18 at 21:00 Pregabalin (Lyrica) 75 mg BID PO Last administered on 11/24/18at 09:02; Admin Dose 75 MG; Start 11/23/18 at 21:00 IV Flush (NS 3 ml) 3 ml PER PROTOCOL IV ; Start 11/23/18 at 16:30 Ondansetron HCl (Zofran Inj) 4 mg Q6H PRN IV NAUSEA/VOMITING; Start 11/23/18 at 16:30 Acetaminophen (Tylenol Tab) 650 mg Q6H PRN PO .PAIN 1-3 OR TEMP; Start 11/23/18 at 16:30 Acetaminophen/ Hydrocodone Bitart ([place] (5/325)) 1 tab Q6H PRN PO .MOD PAIN 4- 6 Last administered on 11/24/18at 06:26; Admin Dose 1 TAB; Start 11/23/18 at 16:3 0 Morphine Sulfate (morphine) 2 mg Q4H PRN IV .SEVERE PAIN 7-10 Last administered on 11/23/18at 23:30; Admin Dose 2 MG; Start 11/23/18 at 16:30 Docusate Sodium (Colace) 100 mg Q12H PRN PO .CONSTIPATION; Start 11/23/18 at 16:30 Magnesium Hydroxide (Milk Of Mag) 30 ml DAILY PRN PO .CONSTIPATION; Start 11/23/18 at 16:30 Heparin Sodium (Porcine) (Heparin (5000 Units/1ml)) 5,000 unit Q12 SC ; Start 11/23/18 at 21:00 Lorazepam (Ativan) 0.5 mg Q6H PRN IV ANXIETY; Start 11/23/18 at 16:30 Albuterol/ Ipratropium (Duoneb) 3 ml Q4H RESP THERAPY PRN HHN SHORTNESS OF BREATH; Start 11/23/18 at 16:30 Hydralazine HCl (Apresoline) 10 mg Q6H PRN IV ELEVATED BLOOD PRESSURE; Start 11/23/18 at 16:30 Nitroglycerin (Nitroglycerin (Sl Tab) 0.4 Mg) 1 tab Q5M PRN SL ANGINA; Start 11/23/18 at 16:30 Aspirin (Ecotrin) 325 mg DAILY PO Last administered on 11/24/18at 09:03; Admin Dose 325 MG; Start 11/24/18 at 09:00 Pantoprazole (Protonix Tab) 40 mg DAILY@06 PO Last administered on 11/24/18at 06:17; Admin Dose 40 MG; Start 11/23/18 at 21:30 Non-Formulary Medication 0.5 ea BID PO ; Start 11/23/18 at 22:00 JAYCEE LUND Nov 24, 2018 13:48
[2018-11-24 15:02] VITALS: BP 146/66; PULSE 69; RESP 20
--- NOTE | 2018-11-24 16:04 | CONS ---
DATE OF ADMISSION: 11/23/2018 DATE OF CONSULTATION: 11/24/2018 HISTORY OF PRESENT ILLNESS: The patient is a 63-year-old female with past medical history of end-sta ge renal disease on hemodialysis, lupus, hypertension, prior UTI, presented to the hospital after not icing some chest pain. The patient has been on dialysis on Tuesday, , Tuesday schedule. He r last dialysis was yesterday, which she did without complication. She dialyzes through a left upper arm fistula. She has been on dialysis for 8 years. She had a biopsy at the time of dialysis and it was thought that she had diabetes related nephrosclerosis, although her diabetic history was very mi nimal at which point, she has been on dialysis since. She has had evaluations for cardiac conditions in the past without any consequences. She makes minimal urine. She denies fevers, chills, nausea, vomiting, chest pain, shortness of at this time. Chest pain earlier that resolved. PAST MEDICAL HISTORY: Significant for the above. MEDICATIONS: From home include: 1. Lyrica. 2. Veltassa. 3. Omeprazole. 4. Losartan. 5. Amlodipine. ALLERGIES: THE PATIENT HAS ALLERGIES TO LIDOCAINE. SOCIAL HISTORY: Does not smoke, drink or do drugs. FAMILY HISTORY: No history of kidney disease. REVIEW OF SYSTEMS: A 14-point review of systems attempted and negative. PHYSICAL EXAMINATION: VITAL SIGNS: We see temperature 98, blood pressure 140/65. HEENT: Normocephalic, atraumatic. Pupils equal, round and reactive to light. Oropharynx is moist. NECK: Supple. HEART: Regular rate and rhythm. LUNGS: Clear to auscultation. ABDOMEN: Soft, nontender, nondistended. Bowel sounds are present. LABORATORY EVALUATION: Shows a sodium 136, potassium 6.3, BUN 35, creatinine 4.36. UA is reviewed o n microscopy. IMAGING: Chest x-ray reviewed by radiologist. IMPRESSION: 1. End-stage renal disease. Will dialyze off schedule today as patient has hyperkalemia. Dialysis will be ordered will follow up again, likely underlying diabetic nephrosclerosis. Will monitor. 2. Chest pain. Workup is underway. Consider cardiology evaluation. 3. History of lupus with unclear diagnostic criteria on no medicines. 4. Hypertension. Continue regular medications. 5. Anemia of chronic kidney disease. At this time, patient has pancytopenia. The patient as an outpatient. The patient had a bad REACTION TO ERYTHROPOIETIN, so will not order any here. 76. Leukopenia. Consider workup, may be related to the autoimmune disease. Dictated By: AVERY RAVI MD DF/NTS Conf#: [id number] DID#: [id number] CC: JAYCEE LUND;*EndCC*
--- NOTE | 2018-11-24 16:54 | QN ---
Documentation Comment As Physician Advisor I have reviewed the chart and have determined that as of today, this patient continues to receive medically necessary care required for the diagnosis and treatment of illness or injury. There has been no unreasonable delay in the rendering of medically necessary services, and this medically necessary care requires a length of stay expected to be greater than two midnights. Additional information gained during the stay now suggests this patient should have been classified as an inpatient at the time of admission, and I will change the status to inpatient to reflect that medical judgment. Besides the notes from the medical providers, the following information was used in this determination: Congestive heart failure with pulmonary hypertension, renal failure requiring dialysis, continued chest pain requiring further imaging including CT. Please call me at [phone] with questions. AMERICO DOLL MD Nov 24, 2018 16:54
[2018-11-24 19:35] VITALS: BP 149/67; PULSE 73; RESP 18
[2018-11-24] MEDS: morphine 2 MG INJ IV PRN (21:19)
[2018-11-25] VITALS (21 sets, daily range): BP systolic 122–159; BP diastolic 50–90; PULSE 60–85; RESP 16–20
[2018-11-25] MEDS: PANTOPRAZOLE (EC) 40 MG TAB PO SCH (05:30)
[2018-11-25] MEDS: LOSARTAN 25 MG TAB PO SCH ×2 (08:21→20:10)
[2018-11-25] MEDS: ASPIRIN (EC) 325 MG TAB PO SCH (08:21)
[2018-11-25] MEDS: PATIROMER CALCIUM SORBITEX 16.8 GM PO SCH ×2 (08:21→20:12)
[2018-11-25] MEDS: HEPARIN 5,000 UNIT/1 ML VIAL SC SCH ×2 (08:22→20:12)
[2018-11-25] MEDS: morphine 2 MG INJ IV PRN (08:22)
[2018-11-25] MEDS: PREGABALIN 75 MG CAP PO SCH ×2 (08:28→20:10)
--- NOTE | 2018-11-25 09:07 | CONS ---
Consult Date/Type/Reason Admit Date/Time Nov 24, 2018 at 16:51 Initial Consult Date Date/Time of Note DATE: 11/25/18 TIME: 08:57 Subjective 63-year-old female with past medical history of end-stage renal disease on hemodialysis, lupus, hypertension, prior UTI, presented to the hospital after noticing some chest pain. The patient has been on dialysis on Tuesday, , Tuesday schedule. Her last dialysis was yesterday, which she did without complication. She dialyzes through a left upper arm fistula. She has been on dialysis for 8 years. She had a biopsy at the time of dialysis and it w as thought that she had diabetes related nephrosclerosis, although her diabetic history was very minimal at which point, she has been on dialysis since. She has had evaluations for cardiac conditions in the past without any consequences. She makes minimal urine. She denies fevers, chills, nausea, vomiting, chest pain, shortness of at this time. Chest pain earlier that resolved. on hd today. poc reviewed with dr. brady. PHYSICAL EXAMINATION: HEENT: Normocephalic, atraumatic. Pupils equal, round and reactive to light. Oropharynx is moist. NECK: Supple. HEART: Regular rate and rhythm. LUNGS: Clear to auscultation. ABDOMEN: Soft, nontender, nondistended. Bowel sounds are present. EXT: no c,c,e Objective Vitals Vital Signs Date Temp Pulse Resp B/P (MAP) Pulse Ox O2 O2 Flow FiO2 Time Delivery Rate 11/25/18 98.0 85 20 148/67 91 Nasal 07:23 (94) Cannula 11/25/18 2.0 01:42 Intake and Output 11/24/18 11/24/18 11/25/18 1515:00 23:00 07:00 IntakeIntake Total 760 ml 350 ml OutputOutput Total 2 ml BalanceBalance 758 ml 350 ml Results/Medications Result Diagram: 11/25/18 0557 11/25/18 0556 Results 24 hrs Laboratory Tests Test 11/25/18 05:56 11/25/18 05:57 Sodium Level 134 L Potassium Level 5.8 H Chloride Level 93 L Carbon Dioxide Level 29 Anion Gap 12 Blood Urea Nitrogen 52 H Creatinine 5.80 H Est Glomerular Filtrat Rate mL/min 7 L Glucose Level 99 Calcium Level 7.4 L White Blood Count 4.1 #L Red Blood Count 3.27 L Hemoglobin 10.0 L Hematocrit 32.8 L Mean Corpuscular Volume 100.3 Mean Corpuscular Hemoglobin 30.6 Mean Corpuscular Hemoglobin Concent 30.5 L Red Cell Distribution Width 13.8 Platelet Count 145 Mean Platelet Volume 10.4 Immature Granulocytes % 0.200 Neutrophils % 70.7 Lymphocytes % 11.4 L Monocytes % 10.2 Eosinophils % 6.8 Basophils % 0.7 Nucleated Red Blood Cells % 0.0 Immature Granulocytes # 0.010 Neutrophils # 2.9 Lymphocytes # 0.5 L Monocytes # 0.4 Eosinophils # 0.3 Basophils # 0.0 Nucleated Red Blood Cells # 0.0 Home Meds Reported Medications Pregabalin* (Lyrica*) 75 Mg Capsule, 75 MG PO BID, CAP 11/23/18 Patiromer Calcium Sorbitex (Veltassa) 8.4 Gm Powd.pack, 8.4 GM PO BID ON NON-DIALYSIS DAYS 11/23/18 Omeprazole* (Omeprazole*) 40 Mg Capsule.dr, 40 MG PO QHS, #30 CAP 11/23/18 Losartan Potassium* (Losartan Potassium*) 25 Mg Tablet, 25 MG PO BID, TAB 11/23/18 Amlodipine Besylate* (Norvasc*) 5 Mg Tablet, 5 MG PO QHS, TAB 11/23/18 Discontinued Reported Medications Pregabalin* (Lyrica*) 75 Mg Capsule, 75 MG PO BID, CAP 08/30/18 Hydrocodone/Acetaminophen ([place] 10-325 Tablet) 1 Each Tablet, 1 EACH PO Q4H for PAIN -01/16, TAB 09/26/17 Discontinued Scripts Levofloxacin* (Levofloxacin*) 750 Mg Tablet, 750 MG PO DAILY for 7 Days, #7 TAB Prov:JAYCEE LUND S. 08/31/18 Benzocaine/Menthol (SORE THROAT LOZENGE) 1 Each Lozenge, 1 LOZENGE MT Q1H PRN for sore throat and cough , #14 LOZENGE Prov:JAYCEE LUND S. 08/31/18 Medications Current Medications Losartan Potassium (Cozaar) 25 mg BID PO Last administered on 11/25/18at 08:21; Admin Dose 25 MG; Start 11/23/18 at 21:00 Pregabalin (Lyrica) 75 mg BID PO Last administered on 11/25/18 08:28; Admin Dose 75 MG; Start 11/23/18 at 21:00 IV Flush (NS 3 ml) 3 ml PER PROTOCOL IV ; Start 11/23/18 at 16:30 Ondansetron HCl (Zofran Inj) 4 mg Q6H PRN IV NAUSEA/VOMITING; Start 11/23/18 at 16:30 Acetaminophen (Tylenol Tab) 650 mg Q6H PRN PO .PAIN 1-3 OR TEMP; Start 11/23/18 at 16:30 Acetaminophen/ Hydrocodone Bitart ([place] (5/325)) 1 tab Q6H PRN PO .MOD PAIN 4- 6 Last administered on 11/24/18 06:26; Admin Dose 1 TAB; Start 11/23/18 at 16:30 Morphine Sulfate (morphine) 2 mg Q4H PRN IV .SEVERE PAIN 7-10 Last administered on 11/25/18 08:22; Admin Dose 2 MG; Start 11/23/18 at 16:30 Docusate Sodium (Colace) 100 mg Q12H PRN PO .CONSTIPATION; Start 11/23/18 at 16:30 Magnesium Hydroxide (Milk Of Mag) 30 ml DAILY PRN PO .CONSTIPATION; Start 11/23/18 at 16:30 Heparin Sodium (Porcine) (Heparin (5000 Units/1ml)) 5,000 unit Q12 SC ; Start 11/23/18 at 21:00 Lorazepam (Ativan) 0.5 mg Q6H PRN IV ANXIETY; Start 11/23/18 at 16:30 Albuterol/ Ipratropium (Duoneb) 3 ml Q4H RESP THERAPY PRN HHN SHORTNESS OF BREATH; Start 11/23/18 at 16:30 Hydralazine HCl (Apresoline) 10 mg Q6H PRN IV ELEVATED BLOOD PRESSURE; Start 11/23/18 at 16:30 Nitroglycerin (Nitroglycerin (Sl Tab) 0.4 Mg) 1 tab Q5M PRN SL ANGINA; Start 11/23/18 at 16:30 Aspirin (Ecotrin) 325 mg DAILY PO Last administered on 11/25/18 08:21; Admin Dose 325 MG; Start 11/24/18 at 09:00 Pantoprazole (Protonix Tab) 40 mg DAILY@06 PO Last administered on 11/25/18at 05:30; Admin Dose 40 MG; Start 11/23/18 at 21:30 Non-Formulary Medication 0.5 ea BID PO Last administered on 11/25/18at 08:21; Admin Dose 0.5 EA; Start 11/23/18 at 22:00 Assessment/Plan Hospital Course (Demo Recall) 1. End-stage renal disease. Will dialyze on schedule today as patient has hyperkalemia. -likely underlying diabetic nephrosclerosis. Will monitor. - assess daily for hd needs. - all meds dosed ok. 2. Chest pain. Workup is underway. Claims has had numerous cardiac workups but none recently. 3. History of lupus with unclear diagnostic criteria on no medicines. 4. Hypertension. Continue regular medications. 5. Anemia of chronic kidney disease. At this time, patient has pancytopenia. The patient is on mircerra as an outpatient. The patient had a bad REACTION TO ERYTHROPOIETIN, so will not order any here. 6. Leukopenia. Consider workup, may be related to the autoimmune disease. AVERY RAVI MD Nov 25, 2018 09:06
--- NOTE | 2018-11-25 10:10 | PN ---
Date/Time of Note Date/Time of Note DATE: 11/25/18 TIME: 10:09 Assessment/Plan VTE Prophylaxis Risk score (from Ns)>0 risk: 4 SCD applied (from Ns): No SCD contraindicated: other Pharmacological prophylaxis: heparin Lines/Catheters IV [facility]from [facility] [place] [facility] Urinary Cath still in place: No Assessment/Plan Hospital Course S: Patient still having some chest pain complaints. Presently undergoing dialysis. Had CT chest performed yesterday, results still pending. O: VS- see below PE: Constitutional: alert, oriented, well developed Head: normocephalic, atraumatic Eyes: EOMI, PERRL Respiratory: clear to auscultation, normal air movement Cardiovascular: regular rate and rhythm, there is some tenderness to sternal palpation Gastrointestinal: soft Extremities: normal pulses Neuro: No focal deficits 2D echo: Conclusions: Normal left ventricular wall thickness. Moderate enlargement of left ventricle cavity. Severe global left ventricular systolic dysfunction. Ejection fraction is visually estimated at 30-35 %. Tissue Doppler/Mitral Doppler indices are consistent with impaired relaxation (Stage I diastolic dysfunction). Normal right ventricular systolic function. Mild enlargement of right ventricle. There is moderate tricuspid regurgitation. Small pericardial effusion. Pleural effusion seen. The estimated Peak RVSP is 55 mmHg. Dilated IVC without respiratory collapse consistent with elevated right atrial pressure. Assessment and plan: 63-year-old female past medical history of end-stage renal disease on dialysis, lupus, hypertension, prior UTI, who presents with chest pain. # cp: has ruled out acute coronary syndrome. Patient does admit to high stress episode (big argument with her mother) 48 hours prior to admission, this could be contributing to patient's pain symptoms. -Monitor, continue current medications -Echocardiogram results reviewed, follow-up recognitions from cardiology consult as well -Follow-up PT eval -Follow-up results of CT chest which was performed yesterday apparently. #End-stage renal disease: On dialysis -Continue dialysis per renal recommendations #History of lupus: Monitor for now #Hypertension: Blood pressure stable, continue current medications #GI prophylaxis: Omeprazole Result Diagram: 11/25/18 0557 11/25/18 0556 Results 24hrs Laboratory Tests Test 11/25/18 05:54 11/25/18 05:56 11/25/18 05:57 Hepatitis B Surface Antigen NEGATIVE Sodium Level 134 L Potassium Level 5.8 H Chloride Level 93 L Carbon Dioxide Level 29 Anion Gap 12 Blood Urea Nitrogen 52 H Creatinine 5.80 H Est Glomerular Filtrat Rate mL/min 7 L Glucose Level 99 Calcium Level 7.4 L White Blood Count 4.1 #L Red Blood Count 3.27 L Hemoglobin 10.0 L Hematocrit 32.8 L Mean Corpuscular Volume 100.3 Mean Corpuscular Hemoglobin 30.6 Mean Corpuscular Hemoglobin Concent 30.5 L Red Cell Distribution Width 13.8 Platelet Count 145 Mean Platelet Volume 10.4 Immature Granulocytes % 0.200 Neutrophils % 70.7 Lymphocytes % 11.4 L Monocytes % 10.2 Eosinophils % 6.8 Basophils % 0.7 Nucleated Red Blood Cells % 0.0 Immature Granulocytes # 0.010 Neutrophils # 2.9 Lymphocytes # 0.5 L Monocytes # 0.4 Eosinophils # 0.3 Basophils # 0.0 Nucleated Red Blood Cells # 0.0 Exam/Review of Systems Exam Vitals Vital Signs Date Temp Pulse Resp B/P (MAP) Pulse Ox O2 O2 Flow FiO2 Time Delivery Rate 11/25/18 98.0 85 20 148/67 91 Nasal 07:23 (94) Cannula 11/25/18 2.0 01:42 Intake and Output 11/24/18 11/24/18 11/25/18 1515:00 23:00 07:00 IntakeIntake Total 760 ml 350 ml OutputOutput Total 2 ml BalanceBalance 758 ml 350 ml Results Results 24hrs Laboratory Tests Test 11/25/18 05:54 11/25/18 05:56 11/25/18 05:57 Hepatitis B Surface Antigen NEGATIVE Sodium Level 134 L Potassium Level 5.8 H Chloride Level 93 L Carbon Dioxide Level 29 Anion Gap 12 Blood Urea Nitrogen 52 H Creatinine 5.80 H Est Glomerular Filtrat Rate mL/min 7 L Glucose Level 99 Calcium Level 7.4 L White Blood Count 4.1 #L Red Blood Count 3.27 L Hemoglobin 10.0 L Hematocrit 32.8 L Mean Corpuscular Volume 100.3 Mean Corpuscular Hemoglobin 30.6 Mean Corpuscular Hemoglobin Concent 30.5 L Red Cell Distribution Width 13.8 Platelet Count 145 Mean Platelet Volume 10.4 Immature Granulocytes % 0.200 Neutrophils % 70.7 Lymphocytes % 11.4 L Monocytes % 10.2 Eosinophils % 6.8 Basophils % 0.7 Nucleated Red Blood Cells % 0.0 Immature Granulocytes # 0.010 Neutrophils # 2.9 Lymphocytes # 0.5 L Monocytes # 0.4 Eosinophils # 0.3 Basophils # 0.0 Nucleated Red Blood Cells # 0.0 Medications Medication Current Medications Losartan Potassium (Cozaar) 25 mg BID PO Last administered on 11/25/18 08:21; Admin Dose 25 MG; Start 11/23/18 at 21:00 Pregabalin (Lyrica) 75 mg BID PO Last administered on 11/25/18 08:28; Admin Dose 75 MG; Start 11/23/18 at 21:00 IV Flush (NS 3 ml) 3 ml PER PROTOCOL IV ; Start 11/23/18 at 16:30 Ondansetron HCl (Zofran Inj) 4 mg Q6H PRN IV NAUSEA/VOMITING; Start 11/23/18 at 16:30 Acetaminophen (Tylenol Tab) 650 mg Q6H PRN PO .PAIN 1-3 OR TEMP; Start 11/23/18 at 16:30 Acetaminophen/ Hydrocodone Bitart ([place] (5/325)) 1 tab Q6H PRN PO .MOD PAIN 4- 6 Last administered on 11/24/18 06:26; Admin Dose 1 TAB; Start 11/23/18 at 16:30 Morphine Sulfate (morphine) 2 mg Q4H PRN IV .SEVERE PAIN 7-10 Last administered on 11/25/18 08:22; Admin Dose 2 MG; Start 11/23/18 at 16:30 Docusate Sodium (Colace) 100 mg Q12H PRN PO .CONSTIPATION; Start 11/23/18 at 16:30 Magnesium Hydroxide (Milk Of Mag) 30 ml DAILY PRN PO .CONSTIPATION; Start 11/23/18 at 16:30 Heparin Sodium (Porcine) (Heparin (5000 Units/1ml)) 5,000 unit Q12 SC ; Start 11/23/18 at 21:00 Lorazepam (Ativan) 0.5 mg Q6H PRN IV ANXIETY; Start 11/23/18 at 16:30 Albuterol/ Ipratropium (Duoneb) 3 ml Q4H RESP THERAPY PRN HHN SHORTNESS OF BREATH; Start 11/23/18 at 16:30 Hydralazine HCl (Apresoline) 10 mg Q6H PRN IV ELEVATED BLOOD PRESSURE; Start 11/23/18 at 16:30 Nitroglycerin (Nitroglycerin (Sl Tab) 0.4 Mg) 1 tab Q5M PRN SL ANGINA; Start 11/23/18 at 16:30 Aspirin (Ecotrin) 325 mg DAILY PO Last administered on 11/25/18at 08:21; Admin Dose 325 MG; Start 11/24/18 at 09:00 Pantoprazole (Protonix Tab) 40 mg DAILY@06 PO Last administered on 11/25/18at 05:30; Admin Dose 40 MG; Start 11/23/18 at 21:30 Non-Formulary Medication 0.5 ea BID PO Last administered on 11/25/18 08:21; Admin Dose 0.5 EA; Start 11/23/18 at 22:00 JAYCEE LUND Nov 25, 2018 10:10
[2018-11-25] MEDS: HYDROCODONE/APAP (5/325) TAB PO PRN ×2 (15:22→23:50)
--- NOTE | 2018-11-25 19:34 | CONS ---
Assessment/Plan Cardiology NYHA: III Heart Failure Type: Chronic Heart Failure Type: Systolic Assessment/Plan Hospital Course (Demo Recall) Assessment: Pleuritic chest pain - ruled out for myocardial infarction, possibly due to pleural effusion Moderate loculated right pleural effusion Chronic systolic heart failure - clinically compensated Nonischemic cardiomyopathy - LVEF 30-35% on current echocardiogram Hypertension End-stage renal disease - on hemodialysis Suspected rheumatologic disease - no definitive diagnosis Recommendations: -add carvedilol 6.25mg BID -continue losartan 25mg BID -continue aspirin at 81mg daily -volume management via hemodialysis -no additional cardiac work up at this time -follow up with outpatient glove presser, may need primary prevention ICD if LVEF does not improve on optimal medical therapy -recommend outpatient rheumatology follow up Consultation Date/Type/Reason Admit Date/Time Nov 24, 2018 at 16:51 Type of Consult Cardiology Reason for Consultation chest pain, congestive heart failure Date/Time of Note DATE: 11/25/18 TIME: 19:23 Hx of Present Illness The patient is a 63 year-old female with chronic systolic heart failure and nonischemic cardiomyopathy who presented with chest pain. She describes three weeks of sharp, right-sided chest pain under her breast radiating to the back. The patient is exacerbated by deep respiratory inspirations. She was diagnosed with pneumonia by her primary care provider, and was prescribed a course of antibiotics, which she has completed. She presented to the hospital with continued chest pain, which was exacerbated after an argument with her mother. EKG shows sinus rhythm with nonspecific ST segment changes. Troponins have been in the normal range x 3. Transthoracic echocardiogram showed a moderately enlarged left ventricle with global hypokinesis and ejection fraction of 30-35%. Chest x-ray and CT show a moderate loculated right pleural effusion. She reports being diagnosed with systolic heart failure 8 years ago, with left ventricular ejection fraction of 20% at that time. Since then, she has undergone coronary angiography twice without obstructive coronary artery disease. She also reports suspected rheumatologic disease, although she has not received a definitive diagnosis. 14 point review of systems negative other than per HPI. Past Medical History Chronic systolic heart failure Nonischemic cardiomyopathy Hypertension End-stage renal disease Suspected rheumatologic disease Home Meds Reported Medications Pregabalin* (Lyrica*) 75 Mg Capsule, 75 MG PO BID, CAP 11/23/18 Patiromer Calcium Sorbitex (Veltassa) 8.4 Gm Powd.pack, 8.4 GM PO BID ON NON-DIALYSIS DAYS 11/23/18 Omeprazole* (Omeprazole*) 40 Mg Capsule.dr, 40 MG PO QHS, #30 CAP 11/23/18 Losartan Potassium* (Losartan Potassium*) 25 Mg Tablet, 25 MG PO BID, TAB 11/23/18 Amlodipine Besylate* (Norvasc*) 5 Mg Tablet, 5 MG PO QHS, TAB 11/23/18 Discontinued Reported Medications Pregabalin* (Lyrica*) 75 Mg Capsule, 75 MG PO BID, CAP 08/30/18 Hydrocodone/Acetaminophen ([place] 10-325 Tablet) 1 Each Tablet, 1 EACH PO Q4H for PAIN -01/16, TAB 09/26/17 Discontinued Scripts Levofloxacin* (Levofloxacin*) 750 Mg Tablet, 750 MG PO DAILY for 7 Days, #7 TAB Prov:JAYCEE LUND S. 08/31/18 Benzocaine/Menthol (SORE THROAT LOZENGE) 1 Each Lozenge, 1 LOZENGE MT Q1H PRN for sore throat and cough , #14 LOZENGE Prov:JAYCEE LUND S. 08/31/18 Medications Current Medications Losartan Potassium (Cozaar) 25 mg BID PO Last administered on 11/25/18at 08:21; Admin Dose 25 MG; Start 11/23/18 at 21:00 Pregabalin (Lyrica) 75 mg BID PO Last administered on 11/25/18at 08:28; Admin Dose 75 MG; Start 11/23/18 at 21:00 IV Flush (NS 3 ml) 3 ml PER PROTOCOL IV ; Start 11/23/18 at 16:30 Ondansetron HCl (Zofran Inj) 4 mg Q6H PRN IV NAUSEA/VOMITING; Start 11/23/18 at 16:30 Acetaminophen (Tylenol Tab) 650 mg Q6H PRN PO .PAIN 1-3 OR TEMP; Start 11/23/18 at 16:30 Acetaminophen/ Hydrocodone Bitart ([place] (5/325)) 1 tab Q6H PRN PO .MOD PAIN 4- 6 Last administered on 11/25/18at 15:22; Admin Dose 1 TAB; Start 11/23/18 at 16:30 Morphine Sulfate (morphine) 2 mg Q4H PRN IV .SEVERE PAIN 7-10 Last administered on 11/25/18at 08:22; Admin Dose 2 MG; Start 11/23/18 at 16:30 Docusate Sodium (Colace) 100 mg Q12H PRN PO .CONSTIPATION; Start 11/23/18 at 16:30 Magnesium Hydroxide (Milk Of Mag) 30 ml DAILY PRN PO .CONSTIPATION; Start 11/23/18 at 16:30 Heparin Sodium (Porcine) (Heparin (5000 Units/1ml)) 5,000 unit Q12 SC ; Start 11/23/18 at 21:00 Lorazepam (Ativan) 0.5 mg Q6H PRN IV ANXIETY; Start 11/23/18 at 16:30 Albuterol/ Ipratropium (Duoneb) 3 ml Q4H RESP THERAPY PRN HHN SHORTNESS OF BREATH; Start 11/23/18 at 16:30 Hydralazine HCl (Apresoline) 10 mg Q6H PRN IV ELEVATED BLOOD PRESSURE; Start 11/23/18 at 16:30 Nitroglycerin (Nitroglycerin (Sl Tab) 0.4 Mg) 1 tab Q5M PRN SL ANGINA; Start 11/23/18 at 16:30 Aspirin (Ecotrin) 325 mg DAILY PO Last administered on 11/25/18at 08:21; Admin Dose 325 MG; Start 11/24/18 at 09:00 Pantoprazole (Protonix Tab) 40 mg DAILY@06 PO Last administered on 11/25/18at 05:30; Admin Dose 40 MG; Start 11/23/18 at 21:30 Non-Formulary Medication 0.5 ea BID PO Last administered on 11/25/18at 08:21; Admin Dose 0.5 EA; Start 11/23/18 at 22:00 Allergies: Coded Allergies: lidocaine (Unverified Allergy, Unknown, 11/23/18) Past Surgical History Cholecystectomy Salpingo-oophorectomy Left upper extremity AV fistula Past Surgical Hx: other Family History Significant Family History: no pertinent family hx Social History Smoking Status: Never smoker Exam/Review of Systems Vital Signs Vitals Vital Signs Date Temp Pulse Resp B/P (MAP) Pulse Ox O2 O2 Flow FiO2 Time Delivery Rate 11/25/18 98.0 79 20 159/69 91 Nasal 15:06 (99) Cannula 11/25/18 2.0 13:34 Intake and Output 11/24/18 11/24/18 11/25/18 1515:00 23:00 07:00 IntakeIntake Total 760 ml 350 ml OutputOutput Total 2 ml BalanceBalance 758 ml 350 ml Exam Constitutional: alert, well developed Psych: no complaints, nl mood/affect Head: normocephalic, atraumatic Eyes: nl conjunctiva, nl lids ENMT: nl external ears & nose, nl nasal mucosa & septum Neck: supple, non-tender Respiratory: diminished breath sounds (right base) Cardiovascular: regular rate and rhythm, systolic murmur Gastrointestinal: soft, non-tender Musculoskeletal: nl extremities to inspection Extremities: No cyanosis, No clubbing, No edema Neurological: nl mental status, nl speech Labs Result Diagram: 11/25/18 0557 11/25/18 0556 Results 24hrs Laboratory Tests Test 11/25/18 05:54 11/25/18 05:56 11/25/18 05:57 Hepatitis B Surface Antigen NEGATIVE Sodium Level 134 L Potassium Level 5.8 H Chloride Level 93 L Carbon Dioxide Level 29 Anion Gap 12 Blood Urea Nitrogen 52 H Creatinine 5.80 H Est Glomerular Filtrat Rate mL/min 7 L Glucose Level 99 Calcium Level 7.4 L White Blood Count 4.1 #L Red Blood Count 3.27 L Hemoglobin 10.0 L Hematocrit 32.8 L Mean Corpuscular Volume 100.3 Mean Corpuscular Hemoglobin 30.6 Mean Corpuscular Hemoglobin Concent 30.5 L Red Cell Distribution Width 13.8 Platelet Count 145 Mean Platelet Volume 10.4 Immature Granulocytes % 0.200 Neutrophils % 70.7 Lymphocytes % 11.4 L Monocytes % 10.2 Eosinophils % 6.8 Basophils % 0.7 Nucleated Red Blood Cells % 0.0 Immature Granulocytes # 0.010 Neutrophils # 2.9 Lymphocytes # 0.5 L Monocytes # 0.4 Eosinophils # 0.3 Basophils # 0.0 Nucleated Red Blood Cells # 0.0 Medications Medications Current Medications Losartan Potassium (Cozaar) 25 mg BID PO Last administered on 11/25/18at 08:21; Admin Dose 25 MG; Start 11/23/18 at 21:00 Pregabalin (Lyrica) 75 mg BID PO Last administered on 11/25/18at 08:28; Admin Dose 75 MG; Start 11/23/18 at 21:00 IV Flush (NS 3 ml) 3 ml PER PROTOCOL IV ; Start 11/23/18 at 16:30 Ondansetron HCl (Zofran Inj) 4 mg Q6H PRN IV NAUSEA/VOMITING; Start 11/23/18 at 16:30 Acetaminophen (Tylenol Tab) 650 mg Q6H PRN PO .PAIN 1-3 OR TEMP; Start 11/23/18 at 16:30 Acetaminophen/ Hydrocodone Bitart ([place] (5/325)) 1 tab Q6H PRN PO .MOD PAIN 4- 6 Last administered on 11/25/18 15:22; Admin Dose 1 TAB; Start 11/23/18 at 16:30 Morphine Sulfate (morphine) 2 mg Q4H PRN IV .SEVERE PAIN 7-10 Last administered on 11/25/18 08:22; Admin Dose 2 MG; Start 11/23/18 at 16:30 Docusate Sodium (Colace) 100 mg Q12H PRN PO .CONSTIPATION; Start 11/23/18 at 16:30 Magnesium Hydroxide (Milk Of Mag) 30 ml DAILY PRN PO .CONSTIPATION; Start 11/06 12/25 at 16:30 Heparin Sodium (Porcine) (Heparin (5000 Units/1ml)) 5,000 unit Q12 SC ; Start 11/23/18 at 21:00 Lorazepam (Ativan) 0.5 mg Q6H PRN IV ANXIETY; Start 11/23/18 at 16:30 Albuterol/ Ipratropium (Duoneb) 3 ml Q4H RESP THERAPY PRN HHN SHORTNESS OF BREATH; Start 11/23/18 at 16:30 Hydralazine HCl (Apresoline) 10 mg Q6H PRN IV ELEVATED BLOOD PRESSURE; Start 11/23/18 at 16:30 Nitroglycerin (Nitroglycerin (Sl Tab) 0.4 Mg) 1 tab Q5M PRN SL ANGINA; Start 11/23/18 at 16:30 Aspirin (Ecotrin) 325 mg DAILY PO Last administered on 11/25/18 08:21; Admin Dose 325 MG; Start 11/24/18 at 09:00 Pantoprazole (Protonix Tab) 40 mg DAILY@06 PO Last administered on 11/25/18 05:30; Admin Dose 40 MG; Start 11/23/18 at 21:30 Non-Formulary Medication 0.5 ea BID PO Last administered on 11/25/18at 08:21; Admin Dose 0.5 EA; Start 11/23/18 at 22:00 MOLLY GAMBOA MD Nov 25, 2018 19:34
[2018-11-26] VITALS: BP 160/72; PULSE 69; RESP 20
[2018-11-26 03:15] VITALS: BP 141/65; PULSE 69; RESP 19
[2018-11-26] MEDS: PANTOPRAZOLE (EC) 40 MG TAB PO SCH (06:01)
[2018-11-26 07:40] VITALS: BP 143/70; PULSE 70; RESP 18
--- NOTE | 2018-11-26 08:13 | CONS ---
Consult Date/Type/Reason Admit Date/Time Nov 24, 2018 at 16:51 Initial Consult Date Date/Time of Note DATE: 11/26/18 TIME: 08:11 Subjective 63-year-old female with past medical history of end-stage renal disease on hemodialysis, lupus, hypertension, prior UTI, presented to the hospital after noticing some chest pain. The patient has been on dialysis on Tuesday, , Tuesday schedule. Her last dialysis was yesterday, which she did without complication. She dialyzes through a left upper arm fistula. She has been on dialysis for 8 years. She had a biopsy at the time of dialysis and it w as thought that she had diabetes related nephrosclerosis, although her diabetic history was very minimal at which point, she has been on dialysis since. She has had evaluations for cardiac conditions in the past without any consequences. She makes minimal urine. She denies fevers, chills, nausea, vomiting, chest pain, shortness of at this time. Chest pain earlier that resolved. on hd yesterday without complication. poc reviewed with dr. brady. PHYSICAL EXAMINATION: HEENT: Normocephalic, atraumatic. Pupils equal, round and reactive to light. Oropharynx is moist. NECK: Supple. HEART: Regular rate and rhythm. LUNGS: Clear to auscultation. ABDOMEN: Soft, nontender, nondistended. Bowel sounds are present. EXT: no c,c,e Objective Vitals Vital Signs Date Temp Pulse Resp B/P (MAP) Pulse Ox O2 O2 Flow FiO2 Time Delivery Rate 11/26/18 98.2 70 18 143/70 98 07:40 (94) 11/26/18 2.0 27 06:02 11/26/18 Nasal 03:15 Cannula Intake and Output 11/25/18 11/25/18 11/26/18 1515:00 23:00 07:00 IntakeIntake Total 880 ml 300 ml OutputOutput Total 3400 ml 3000 ml BalanceBalance -3400 ml -2120 ml 300 ml Results/Medications Result Diagram: 11/26/18 0537 11/26/18 0537 Results 24 hrs Laboratory Tests Test 11/26/18 05:37 White Blood Count 3.6 L Red Blood Count 3.04 L Hemoglobin 9.6 L Hematocrit 30.2 L Mean Corpuscular Volume 99.3 Mean Corpuscular Hemoglobin 31.6 Mean Corpuscular Hemoglobin Concent 31.8 L Red Cell Distribution Width 13.7 Platelet Count 141 Mean Platelet Volume 10.4 Immature Granulocytes % 0.600 H Neutrophils % 60.4 Lymphocytes % 13.8 L Monocytes % 15.2 H Eosinophils % 9.4 H Basophils % 0.6 Nucleated Red Blood Cells % 0.0 Immature Granulocytes # 0.020 Neutrophils # 2.2 Lymphocytes # 0.5 L Monocytes # 0.6 Eosinophils # 0.3 Basophils # 0.0 Nucleated Red Blood Cells # 0.0 Sodium Level 135 Potassium Level 5.0 Chloride Level 91 L Carbon Dioxide Level 35 H Anion Gap 9 Blood Urea Nitrogen 44 H Creatinine 4.38 #H Est Glomerular Filtrat Rate mL/min 10 L Glucose Level 88 Calcium Level 7.2 L Home Meds Reported Medications Pregabalin* (Lyrica*) 75 Mg Capsule, 75 MG PO BID, CAP 11/23/18 Patiromer Calcium Sorbitex ([place]eltassa) 8.4 Gm Powd.pack, 8.4 GM PO BID ON NON-DIALYSIS DAYS 11/23/18 Omeprazole* (Omeprazole*) 40 Mg Capsule.dr, 40 MG PO QHS, #30 CAP 11/23/18 Losartan Potassium* (Losartan Potassium*) 25 Mg Tablet, 25 MG PO BID, TAB 11/23/18 Amlodipine Besylate* (Norvasc*) 5 Mg Tablet, 5 MG PO QHS, TAB 11/23/18 Discontinued Reported Medications Pregabalin* (Lyrica*) 75 Mg Capsule, 75 MG PO BID, CAP 08/30/18 Hydrocodone/Acetaminophen ([place] 10-325 Tablet) 1 Each Tablet, 1 EACH PO Q4H for PAIN -01/16, TAB 09/26/17 Discontinued Scripts Levofloxacin* (Levofloxacin*) 750 Mg Tablet, 750 MG PO DAILY for 7 Days, #7 TAB Prov:JAYCEE LUND S. 08/31/18 Benzocaine/Menthol (SORE THROAT LOZENGE) 1 Each Lozenge, 1 LOZENGE MT Q1H PRN for sore throat and cough , #14 LOZENGE Prov:JAYCEE LUND S. 08/31/18 Medications Current Medications Losartan Potassium (Cozaar) 25 mg BID PO Last administered on 11/25/18 20:10; Admin Dose 25 MG; Start 11/23/18 at 21:00 Pregabalin (Lyrica) 75 mg BID PO Last administered on 11/25/18 20:10; Admin Dose 75 MG; Start 11/23/18 at 21:00 IV Flush (NS 3 ml) 3 ml PER PROTOCOL IV ; Start 11/23/18 at 16:30 Ondansetron HCl (Zofran Inj) 4 mg Q6H PRN IV NAUSEA/VOMITING; Start 11/23/18 at 16:30 Acetaminophen (Tylenol Tab) 650 mg Q6H PRN PO .PAIN 1-3 OR TEMP; Start 11/23/18 at 16:30 Acetaminophen/ Hydrocodone Bitart ([place] (5/325)) 1 tab Q6H PRN PO .MOD PAIN 4- 6 Last administered on 11/25/18at 23:50; Admin Dose 1 TAB; Start 11/23/18 at 16:30 Morphine Sulfate (morphine) 2 mg Q4H PRN IV .SEVERE PAIN 7-10 Last administered on 11/25/18at 08:22; Admin Dose 2 MG; Start 11/23/18 at 16:30 Docusate Sodium (Colace) 100 mg Q12H PRN PO .CONSTIPATION; Start 11/23/18 at 16:30 Magnesium Hydroxide (Milk Of Mag) 30 ml DAILY PRN PO .CONSTIPATION; Start 11/23/18 at 16:30 Heparin Sodium (Porcine) (Heparin (5000 Units/1ml)) 5,000 unit Q12 SC ; Start 11/23/18 at 21:00 Lorazepam (Ativan) 0.5 mg Q6H PRN IV ANXIETY; Start 11/23/18 at 16:30 Albuterol/ Ipratropium (Duoneb) 3 ml Q4H RESP THERAPY PRN HHN SHORTNESS OF BREATH; Start 11/23/18 at 16:30 Hydralazine HCl (Apresoline) 10 mg Q6H PRN IV ELEVATED BLOOD PRESSURE; Start 11/23/18 at 16:30 Nitroglycerin (Nitroglycerin (Sl Tab) 0.4 Mg) 1 tab Q5M PRN SL ANGINA; Start at 16:30 Pantoprazole (Protonix Tab) 40 mg DAILY@06 PO Last administered on 11/26/18at 06:01; Admin Dose 40 MG; Start 11/23/18 at 21:30 Non-Formulary Medication 0.5 ea BID PO Last administered on 11/25/18at 08:21; Admin Dose 0.5 EA; Start 11/23/18 at 22:00 Aspirin (Ecotrin) 81 mg DAILY PO ; Start 11/26/18 at 09:00 Carvedilol (Coreg) 6.25 mg BID PO Last administered on 11/25/18at 20:10; Admin Dose 6.25 MG; Start 11/25/18 at 21:00 Assessment/Plan Hospital Course (Demo Recall) 1. End-stage renal disease. Will dialyze on schedule today as patient has hyperkalemia. - likely underlying diabetic nephrosclerosis. Will monitor. - assess daily for hd needs. - all meds dosed ok. 2. Chest pain. Workup is underway. Claims has had numerous cardiac workups but none recently. 3. History of lupus with unclear diagnostic criteria on no medicines. 4. Hypertension. Continue regular medications. 5. Anemia of chronic kidney disease. At this time, patient has pancytopenia. The patient is on mircerra as an outpatient. The patient had a bad REACTION TO ERYTHROPOIETIN, so will not order any here. 6. Leukopenia. Consider workup, may be related to the autoimmune disease. AVERY RAVI MD Nov 26, 2018 08:13
[2018-11-26] MEDS: PREGABALIN 75 MG CAP PO SCH (08:33)
[2018-11-26] MEDS: LOSARTAN 25 MG TAB PO SCH (08:34)
[2018-11-26] MEDS: PATIROMER CALCIUM SORBITEX 16.8 GM PO SCH (08:36)
[2018-11-26] MEDS: HEPARIN 5,000 UNIT/1 ML VIAL SC SCH (08:37)
[2018-11-26] MEDS: HYDROCODONE/APAP (5/325) TAB PO PRN (08:50)
[2018-11-26] MEDS ORDERED: ASPIRIN (EC) 81 MG TAB PO SCH (09:00)
--- NOTE | 2018-11-26 11:16 | PDOCDIS ---
Discharge Instructions CONDITION [id number] Patient Condition: [id number] Stable HOME CARE INSTRUCTIONS: [id number] Diet Instructions: [id number] Low Fat /Cholesterol ACTIVITY: [id number] Activity Restrictions: [id number] Slowly Increase Activity Rest between Activity Avoid heavy lifting FOLLOW UP/APPOINTMENTS Follow-up Plan Please take your medication as prescribed, see your doctor in the clinic in the next 1 week. JAYCEE LUND Nov 26, 2018 11:16
[2018-11-26] MEDS ORDERED: BENZ1LOZ52 MM (11:19)
[2018-11-26] MEDS ORDERED: CARV6.2579 PO (11:19)
[2018-11-26] MEDS ORDERED: ASPI-1044 PO (11:19)
--- NOTE | 2018-11-26 11:28 | DS ---
Date/Time of Note Date/Time of Note DATE: 11/26/18 TIME: 11:22 Discharge Summary Admission/Discharge Info Admit Date/Time Nov 24, 2018 at 16:51 Discharge Date/Time Discharge Diagnosis # cp: has ruled out acute coronary syndrome. Patient does admit to high stress episode (big argument with her mother) 48 hours prior to admission, this could have contributed to patient's pain symptoms. Also findings of moderate pleural effusion on the right side, improved after dialysis # Moderate loculated right pleural effusion -improving with dialysis # Chronic systolic heart failure - clinically compensated # Nonischemic cardiomyopathy - LVEF 30-35% on current echocardiogram # Possible lupus-awaiting another outpatient referral for rheumatology # Hypertension: Blood pressure stable, continue current medications # Normocytic anemia: Likely anemia of chronic disease/renal failure # End-stage renal disease: On dialysis Patient Condition: Stable Procedures 2D echo: Conclusions: Normal left ventricular wall thickness. Moderate enlargement of left ventricle cavity. Severe global left ventricular systolic dysfunction. Ejection fraction is visually estimated at 30-35 %. Tissue Doppler/Mitral Doppler indices are consistent with impaired relaxation (Stage I diastolic dysfunction). Normal right ventricular systolic function. Mild enlargement of right ventricle. There is moderate tricuspid regurgitation. Small pericardial effusion. Pleural effusion seen. The estimated Peak RVSP is 55 mmHg. Dilated IVC without respiratory collapse consistent with elevated right atrial pressure. Hx of Present Illness 63-year-old female past medical history of end-stage renal disease on dialysis, lupus, hypertension, prior UTI, who presents with chest pain. Patient states the symptoms first began about 3 weeks ago and she went to her primary care doctor about 2 weeks ago and had chest x-ray performed at that time. She was diagnosed with a small pneumonia and given antibiotics for little over a week. She took those antibiotics with minimal improvement in her symptoms until today when her chest pain recurred. She describes the pain occurring near her right breast and radiating to her back she denies any trauma to the area no falls she said some nausea symptoms for 1 day as well but no vomiting no upper lower GI bleeding no shortness of breath no fevers or chills. When she came in today she had a chest x-ray that showed: IMPRESSION: 1. Moderate right and small left pleural effusions, not significantly changed when compared to the prior examination. 2. Right basilar atelectasis versus pneumonia, also unchanged. 3. Interval improvement in degree of pulmonary vascular congestion. 4. Mild cardiomegaly. Patient states she has been going to dialysis regularly including her last session being earlier today. No apparent prior history of any strokes or heart attacks in the past. Hospital Course Patient was admitted and seen by renal, cardiology teams during this hospital stay. She ruled out for acute coronary syndrome. She still complained of some right-sided chest pain symptoms and some low back pain underwent a CT of the chest that did show signs of moderate right-sided pleural effusion and possible signs of pulmonary hypertension. Also mild pericardial effusion. Patient underwent dialysis as regularly scheduled, her pain symptoms somewhat improved. She was able to amply, tolerated p.o. diet. Her echocardiogram results were reviewed and she was placed on new cardiac medications to help control her heart failure symptoms better for her chronic systolic heart failure. Patient will be discharged home today in improved condition. She will go home with home health PT. See below for full list of discharge medications. Home Meds Active Scripts Aspirin Delayed Release (Aspirin Delayed Release) 81 Mg Tablet., 81 MG PO DAILY, #30 3 Refills Prov:JAYCEE LUND S. 11/26/18 Carvedilol* (Carvedilol*) 6.25 Mg Tablet, 6.25 MG PO BID, #60 TAB 3 Refills Prov:JAYCEE LUND S. 11/26/18 Benzocaine/Menthol* (Cepacol* Sore Throat Lozenges) 1 Each Lozenge, 1 EACH MM q2h PRN for SORE THROAT, #1 BOTTLE Prov:JAYCEE LUND S. 11/26/18 Reported Medications Pregabalin* (Lyrica*) 75 Mg Capsule, 75 MG PO BID, CAP 11/23/18 Patiromer Calcium Sorbitex (Veltassa) 8.4 Gm Powd.pack, 8.4 GM PO BID ON NON-DIALYSIS DAYS 11/23/18 Omeprazole* (Omeprazole*) 40 Mg Capsule., 40 MG PO QHS, #30 CAP 11/23/18 Losartan Potassium* (Losartan Potassium*) 25 Mg Tablet, 25 MG PO BID, TAB 11/23/18 Discontinued Reported Medications Amlodipine Besylate* (Norvasc*) 5 Mg Tablet, 5 MG PO QHS, TAB 11/23/18 Pregabalin* (Lyrica*) 75 Mg Capsule, 75 MG PO BID, CAP 08/30/18 Hydrocodone/Acetaminophen ([place] 10-325 Tablet) 1 Each Tablet, 1 EACH PO Q4H for PAIN 7-01/16, TAB 09/26/17 Discontinued Scripts Levofloxacin* (Levofloxacin*) 750 Mg Tablet, 750 MG PO DAILY for 7 Days, #7 TAB Prov:JAYCEE LUND S. 08/31/18 Benzocaine/Menthol (SORE THROAT LOZENGE) 1 Each Lozenge, 1 LOZENGE MT Q1H PRN for sore throat and cough , #14 LOZENGE Prov:MATY LUNDEEP S. 08/31/18 Follow-up Plan Please take your medication as prescribed, see your doctor in the clinic in the next 1 week. Primary Care Provider Not On Staff Doctor Time spent on discharge: > 30 minutes Pending Labs Laboratory Tests Test 11/26/18 05:37 White Blood Count 3.6 10^3/ul (4.8-10.8) Red Blood Count 3.04 10^6/ul (4.20-5.40) Hemoglobin 9.6 g/dl (12.0-16.0) Hematocrit 30.2 % (37.0-47.0) Mean Corpuscular Volume 99.3 fl (82.0-101.0) Mean Corpuscular Hemoglobin 31.6 pg (29.0-33.0) Mean Corpuscular Hemoglobin Concent 31.8 g/dl (32.0-37.0) Red Cell Distribution Width 13.7 % (11.5-14.5) Platelet Count 141 10^3/UL (140-415) Mean Platelet Volume 10.4 fl (7.4-10.4) Immature Granulocytes % 0.600 % (0.001-0.429) Neutrophils % 60.4 % (39.0-77.0) Lymphocytes % 13.8 % (15.0-51.0) Monocytes % 15.2 % (0.0-11.0) Eosinophils % 9.4 % (0.0-7.0) Basophils % 0.6 % (0.0-2.0) Nucleated Red Blood Cells % 0.0 /100WBC (0.0-0.0) Immature Granulocytes # 0.020 10^3/ul (0.0-0.031) Neutrophils # 2.2 10^3/ul (1.6-7.5) Lymphocytes # 0.5 10^3/ul (0.8-2.9) Monocytes # 0.6 10^3/ul (0.3-0.9) Eosinophils # 0.3 10^3/ul (0.0-0.5) Basophils # 0.0 10^3/ul (0.0-0.1) Nucleated Red Blood Cells # 0.0 10^3/ul (0.0-0.0) Sodium Level 135 mmol/L (135-144) Potassium Level 5.0 mmol/L (3.5-5.1) Chloride Level 91 mmol/L (97-110) Carbon Dioxide Level 35 mmol/L (21-31) Anion Gap 9 (5-13) Blood Urea Nitrogen 44 mg/dl (7-20) Creatinine 4.38 mg/dl (0.44-1.00) Est Glomerular Filtrat Rate mL/min 10 mL/min (>60) Glucose Level 88 mg/dl (70-220) Calcium Level 7.2 mg/dl (8.4-10.2) JAYCEE LUND Nov 26, 2018 11:28
[2018-11-26 12:26] VITALS: BP 138/73; PULSE 81; RESP 18
--- NOTE | 2018-11-26 15:55 | CONS ---
Assessment/Plan Cardiology NYHA: III Heart Failure Type: Chronic Heart Failure Type: Systolic Assessment/Plan Hospital Course (Demo Recall) Assessment: Pleuritic chest pain - ruled out for myocardial infarction, possibly due to pleural effusion Moderate loculated right pleural effusion Chronic systolic heart failure - clinically compensated Nonischemic cardiomyopathy - LVEF 30-35% on current echocardiogram Hypertension End-stage renal disease - on hemodialysis Suspected rheumatologic disease - no definitive diagnosis Recommendations: -continue carvedilol 6.25mg BID -continue losartan 25mg BID -continue aspirin at 81mg daily -volume management via hemodialysis -no additional cardiac work up at this time -outpatient cardiology follow up, may need primary prevention ICD if LVEF does not improve on optimal medical therapy -recommend outpatient rheumatology follow up Consultation Date/Type/Reason Admit Date/Time Nov 24, 2018 at 16:51 Initial Consult Date Type of Consult Cardiology Date/Time of Note DATE: 11/26/18 TIME: 15:54 24 HR Interval Summary Free Text/Dictation No acute events. Detailed Summary Additional Comments 14 point review of systems without changes. Exam/Review of Systems Vital Signs Vitals Vital Signs Date Temp Pulse Resp B/P (MAP) Pulse Ox O2 O2 Flow FiO2 Time Delivery Rate 11/26/18 2.0 13:09 11/26/18 98.0 81 18 138/73 98 12:26 (94) 11/26/18 27 06:02 11/26/18 Nasal 03:15 Cannula Intake and Output 11/25/18 11/25/18 11/26/18 1515:00 23:00 07:00 IntakeIntake Total 880 ml 300 ml OutputOutput Total 3400 ml 3000 ml BalanceBalance -3400 ml -2120 ml 300 ml Exam Exam Constitutional: alert, well developed Psych: no complaints, nl mood/affect Head: normocephalic, atraumatic Eyes: nl conjunctiva, nl lids ENMT: nl external ears & nose, nl nasal mucosa & septum Neck: supple, non-tender Respiratory: diminished breath sounds (right base) Cardiovascular: regular rate and rhythm, systolic murmur Gastrointestinal: soft, non-tender Musculoskeletal: nl extremities to inspection Extremities: No cyanosis, No clubbing, No edema Neurological: nl mental status, nl speech Labs Result Diagram: 11/26/18 0537 11/26/18 0537 Results 24hrs Laboratory Tests Test 11/26/18 05:37 White Blood Count 3.6 L Red Blood Count 3.04 L Hemoglobin 9.6 L Hematocrit 30.2 L Mean Corpuscular Volume 99.3 Mean Corpuscular Hemoglobin 31.6 Mean Corpuscular Hemoglobin Concent 31.8 L Red Cell Distribution Width 13.7 Platelet Count 141 Mean Platelet Volume 10.4 Immature Granulocytes % 0.600 H Neutrophils % 60.4 Lymphocytes % 13.8 L Monocytes % 15.2 H Eosinophils % 9.4 H Basophils % 0.6 Nucleated Red Blood Cells % 0.0 Immature Granulocytes # 0.020 Neutrophils # 2.2 Lymphocytes # 0.5 L Monocytes # 0.6 Eosinophils # 0.3 Basophils # 0.0 Nucleated Red Blood Cells # 0.0 Sodium Level 135 Potassium Level 5.0 Chloride Level 91 L Carbon Dioxide Level 35 H Anion Gap 9 Blood Urea Nitrogen 44 H Creatinine 4.38 #H Est Glomerular Filtrat Rate mL/min 10 L Glucose Level 88 Calcium Level 7.2 L Medications Medications Current Medications Losartan Potassium (Cozaar) 25 mg BID PO Last administered on 11/26/18 08:34; Admin Dose 25 MG; Start 11/23/18 at 21:00 Pregabalin (Lyrica) 75 mg BID PO Last administered on 11/26/18 08:33; Admin Dose 75 MG; Start 11/23/18 at 21:00 IV Flush (NS 3 ml) 3 ml PER PROTOCOL IV ; Start 11/23/18 at 16:30 Ondansetron HCl (Zofran Inj) 4 mg Q6H PRN IV NAUSEA/VOMITING; Start 11/23/18 at 16:30 Acetaminophen (Tylenol Tab) 650 mg Q6H PRN PO .PAIN 1-3 OR TEMP; Start 11/23/18 at 16:30 Acetaminophen/ Hydrocodone Bitart (Stephan (5/325)) 1 tab Q6H PRN PO .MOD PAIN 4- 6 Last administered on 11/26/18 08:50; Admin Dose 1 TAB; Start 11/23/18 at 16:30 Morphine Sulfate (morphine) 2 mg Q4H PRN IV .SEVERE PAIN 7-10 Last administered on 11/25/18 08:22; Admin Dose 2 MG; Start 11/23/18 at 16:30 Docusate Sodium (Colace) 100 mg Q12H PRN PO .CONSTIPATION; Start 11/23/18 at 16:30 Magnesium Hydroxide (Milk Of Mag) 30 ml DAILY PRN PO .CONSTIPATION; Start 11/23/18 at 16:30 Heparin Sodium (Porcine) (Heparin (5000 Units/1ml)) 5,000 unit Q12 SC ; Start 11/23/18 at 21:00 Lorazepam (Ativan) 0.5 mg Q6H PRN IV ANXIETY; Start 11/23/18 at 16:30 Albuterol/ Ipratropium (Duoneb) 3 ml Q4H RESP THERAPY PRN HHN SHORTNESS OF BREATH; Start 11/23/18 at 16:30 Hydralazine HCl (Apresoline) 10 mg Q6H PRN IV ELEVATED BLOOD PRESSURE; Start 11/23/18 at 16:30 Nitroglycerin (Nitroglycerin (Sl Tab) 0.4 Mg) 1 tab Q5M PRN SL ANGINA; Start 11/23/18 at 16:30 Pantoprazole (Protonix Tab) 40 mg DAILY@06 PO Last administered on 11/26/18at 06:01; Admin Dose 40 MG; Start 11/23/18 at 21:30 Non-Formulary Medication 0.5 ea BID PO Last administered on 11/26/18 08:36; Admin Dose 0.5 EA; Start 11/23/18 at 22:00 Aspirin (Halfprin) 81 mg DAILY PO Last administered on 11/26/18 08:34; Admin Dose 81 MG; Start 11/26/18 at 09:00 Carvedilol (Coreg) 6.25 mg BID PO Last administered on 11/26/18 08:34; Admin Dose 6.25 MG; Start 11/25/18 at 21:00 MOLLY GAMBOA MD Nov 26, 2018 15:55
[2018-11-26 16:01] VITALS: BP 134/60; PULSE 68; RESP 18
== END 2018-11-26 19:30 | disposition home health service (06) | DRG 313 ==
LOC: E/R 13:27 → TEL 16:01 → OBSVTOIN 11-24 16:51
PROVIDERS: ADMIT Hospitalist; ATTEND Hospitalist
PROC: 5A1D70Z Performance of Urinary Filtration, Intermittent, Less than 6 Hours Per Day (ICD-10-PCS; principal; 2018-11-25)
DX: R07.9 Chest pain, unspecified (principal); N18.6 End stage renal disease; I13.2 Hypertensive heart and chronic kidney disease with heart failure and with stage 5 chronic kidney disease, or end stage renal disease; I42.9 Cardiomyopathy, unspecified; I50.22 Chronic systolic (congestive) heart failure; D63.1 Anemia in chronic kidney disease; D72.819 Decreased white blood cell count, unspecified; M32.9 Systemic lupus erythematosus, unspecified; Z99.2 Dependence on renal dialysis; Z87.891 Personal history of nicotine dependence
CPT/HCPCS: 36415; 71045; 71250; 80048; 80061; 82550; 82553; 83036; 83605; 83690; 83735; 84100; 84439; 84443; 84484; 85025; 85610; 85730; 87340; 90935; 93005; 93306; 96374; 96375; 97161; G0378; J0692; J1644; J2270; J2405; J3370

== ENCOUNTER 2019-03-07 11:55 | Emergency (ER) | payer MEDICARE, OTHER ==
[~2019-03-07] VITALS: Ht 157.5 cm; Wt 48.1 kg
[~2019-03-07 11:55] MED LIST changes: +ASPI-1163 PO; -BENZ1LOZ4 MT; +CARV6.2579 PO; +CITA10TA5 ORAL; -HYDR-3980 PO; +LACT1CAP57 PO; +LEVO500T10 PO; -LEVO750T8 PO; +LORA0.5T ORAL; +LOSA25TA12 PO; +OMEP40CA38 PO; +PATI8.4P PO
[2019-03-07 12:08] VITALS: Ht 157.5 cm; Wt 48.1 kg
[2019-03-07] MEDS ORDERED: ALBUTEROL 0.5% (NEB) 2.5 MG/0.5 ML AMP INH STA (15:11)
[2019-03-07] MEDS ORDERED: INSULIN REGULAR, HUMAN 100 UNIT/1 ML 3ML VIAL IVP STA (15:11)
[2019-03-07] MEDS ORDERED: DEXTROSE 50% 50 ML SYRINGE IV PRN (15:30)
[2019-03-07] MEDS ORDERED: DEXTROSE 50% 50 ML SYRINGE IV ONE (15:30)
[2019-03-07 16:19] VITALS: BP 124/57; PULSE 68; RESP 20
== END 2019-03-07 16:20 | disposition home or self-care (01) ==
LOC: E/R 11:55
DX: R19.5 Other fecal abnormalities (principal); E87.5 Hyperkalemia; D61.818 Other pancytopenia; I11.0 Hypertensive heart disease with heart failure; I50.9 Heart failure, unspecified; J40 Bronchitis, not specified as acute or chronic; Z79.82 Long term (current) use of aspirin; Z87.891 Personal history of nicotine dependence
CPT/HCPCS: 36415; 80048; 82270; 82962; 85025; 85610; 85730; 86850; 86900; 86901; 94664; 96374; 96375; 99284; J1815; 94640